=== PATIENT | female | born 1940 | race Caucasian/White ===

== ENCOUNTER 2017-11-18 20:40 | Inpatient (IN) | payer MEDICARE ==
[~2017-11-18] VITALS: Ht 160 cm; Wt 57.1 kg
[~2017-11-18 20:40] MED LIST: ACET325 PO; ACET500 PO; ALBU.083IS IH; ALBU3IS INH; ALBU3IS NEB; ALBU90OI; ALBU90OI INH; ALBU90OI6 INH; ALBU90OI61 INH; ALBUTEROL INH; ALPR.5; ASPI81CH; ASPI81CH PO; ASPI81EC PO; ATOR10; AZIT250 PO; AZIT500 PO; Acidophilus La100 GM PO; B Complex1 EAC2 PO; BENZ100A PO; BUDE6HFA; BUDE6HFA INH; BUME1; BUME1 PO; CALC1.25T; CALCAVITD PO; CAND32; CEFP200 PO; CEPACOL SORE T1 EACH MM; CEPH500 PO; CETI10 PO; CETYLOZ PO; CHOL10002 PO; CIME300 PO; CLON.1 PO; CLOP75 PO; CYAN1000 PO; DICL250 PO; DIGEST GOLD PO; DIGO.125 PO; DILT360ER; DIPH50; DIPH50 PO; DONE10 PO; DONE5 PO; FERR325 PO; FEXO180 PO; FISH1000 PO; FLUSAL5005; FLUSAL5005 IH; FLUT.05NI; FOLI400 PO; FURO40 PO; GUAI600T33 PO; Garlic1 EAC1; Garlic1 EAC1 PO; Garlic1000 MG PO; HYDCOR20 PO; HYDR10 PO; HYDRALAZINE; IMDUR; IRBE150; IRON PO; ISOMON30 PO; ISOMON60ER PO; Isosorbide Mono30 MG PO; LETR2.5 PO; LEVFLO500 PO; LINZESS145 MCG; LORA.5 PO; MAGCHL64ER PO; MAGN84 PO; MAGOXI400 PO; METPRE4DP PO; MOMENI; MONT10T; MULTCH; Micro-K10 MEQ PO; Mucinex600 MG PO; NASACORT10.8 ML; NASONEX; NEBI10 PO; NEBI5 PO; NIAC500 PO; NIAC500ER PO; NICO14TP TOP; NU-MAG71.5 MG PO; OMEP20ER PO; ONDA4ODT; OXYACE5T PO; PARO20 PO; POTA10T; POTA10T PO; PRED10 PO; PRED20; PRED20 PO; PRED5; PROACE100 PO; PROBIOTIC1 EAC1 PO; PROM25 PO; Prednisone20 MG PO; Prilosec Otc20 MG PO; Red Yeast Rice600 MG PO; SACC250C PO; SLOW-MAG PO; SUCR1 PO; TIOT18 INH; TORSE20 PO; UBID100 PO; VENL75; VERA240ER PO; VERA240ERB PO; VITAMIN B12 PO; Ventolin Soln3 ML; Ventolin Soln3 ML INH; XARELTO15 MG PO; ZOLP5 PO; Zithromax250 MG PO; [UNRECOGNIZED DRUG - OTHER] PO; [UNRECOGNIZED DRUG - OTHER] PO
[2017-11-18 20:57] LABS: BASOPHILS ABSOLUTE AUTO 0.05 K/mm3 (0.00-0.23); BASOPHILS PERCENT AUTO 1 % (0-2); EOSINOPHILS ABSOLUTE AUTO 0.21 K/mm3 (0.00-0.68); EOSINOPHILS PERCENT AUTO 2 % (0-6); Hematocrit 28.6 % (33.0-51.0); Hemoglobin 8.7 g/dL (11.5-16.0); IMMATURE GRAN ABSOLUTE AUTO 0.03 K/mm3 (0.00-0.10); IMMATURE GRAN PERCENT AUTO 0 % (0-1); LYMPHOCYTES ABSOLUTE AUTO 3.04 K/mm3 (0.84-5.20); LYMPHOCYTES PERCENT AUTO 30 % (21-46); MONOCYTES ABSOLUTE AUTO 1.19 K/mm3 (0.16-1.47); MONOCYTES PERCENT AUTO 12 % (4-13); Mean Corpuscular HGB 26.5 pg (26.0-34.0); Mean Corpuscular HGB Conc 30.4 g/dL (31.5-36.5); Mean Corpuscular Volume 87 fL (80-100); Mean Platelet Volume 8.8 fL (9.1-12.4); NEUTROPHILS ABSOLUTE AUTO 5.58 K/mm3 (1.96-9.15); NEUTROPHILS PERCENT AUTO 55 % (41-73); Platelet Count 565 K/mm3 (150-400); RDW Coefficient Variation 16.6 % (11.7-14.2); RDW Standard Deviation 53.4 fL (35.1-46.3); Red Blood Cell Count 3.28 M/mm3 (3.80-5.20)
[2017-11-18 21:12] LABS: Anion Gap 7 mmol/L (6-16); Blood Urea Nitrogen 41 mg/dL (8-24); CO2, Blood 26 mmol/L (21-32); Calcium, Blood 8.8 mg/dL (8.5-10.1); Chloride, Blood 104 mmol/L (98-108); Creatinine, Blood 1.71 mg/dL (0.40-1.00); Glomerular Filtration Rate 31 (60-); Glucose, Blood 92 mg/dL (70-99); Potassium, Blood 3.9 mmol/L (3.5-5.5); Sodium, Blood 137 mmol/L (136-145)
[2017-11-18 22:24] LABS: Troponin I <0.015 ng/mL (0.000-0.040)
[2017-11-19] MEDS ORDERED: CITA20 PO (04:14)
[2017-11-19 05:23] LABS: BASOPHILS ABSOLUTE AUTO 0.01 K/mm3 (0.00-0.23); BASOPHILS PERCENT AUTO 0 % (0-2); EOSINOPHILS PERCENT AUTO 0 % (0-6); Hematocrit 25.8 % (33.0-51.0); Hemoglobin 7.9 g/dL (11.5-16.0); IMMATURE GRAN ABSOLUTE AUTO 0.06 K/mm3 (0.00-0.10); IMMATURE GRAN PERCENT AUTO 1 % (0-1); LYMPHOCYTES ABSOLUTE AUTO 1.11 K/mm3 (0.84-5.20); LYMPHOCYTES PERCENT AUTO 11 % (21-46); MONOCYTES ABSOLUTE AUTO 0.08 K/mm3 (0.16-1.47); MONOCYTES PERCENT AUTO 1 % (4-13); Mean Corpuscular HGB 26.5 pg (26.0-34.0); Mean Corpuscular HGB Conc 30.6 g/dL (31.5-36.5); Mean Corpuscular Volume 87 fL (80-100); Mean Platelet Volume 8.7 fL (9.1-12.4); NEUTROPHILS ABSOLUTE AUTO 8.84 K/mm3 (1.96-9.15); NEUTROPHILS PERCENT AUTO 88 % (41-73); Platelet Count 527 K/mm3 (150-400); RDW Coefficient Variation 16.4 % (11.7-14.2); RDW Standard Deviation 51.8 fL (35.1-46.3); Red Blood Cell Count 2.98 M/mm3 (3.80-5.20)
[2017-11-19 05:50] LABS: Albumin, Blood 2.7 g/dL (3.4-5.0); Anion Gap 10 mmol/L (6-16); Blood Urea Nitrogen 41 mg/dL (8-24); Bun/Creatinine Ratio 23.6 (12.0-20.0); CO2, Blood 22 mmol/L (21-32); Calcium, Blood 8.4 mg/dL (8.5-10.1); Chloride, Blood 105 mmol/L (98-108); Creatinine, Blood 1.74 mg/dL (0.40-1.00); Glomerular Filtration Rate 30 (60-); Glucose, Blood 170 mg/dL (70-99); Potassium, Blood 3.9 mmol/L (3.5-5.5); Sodium, Blood 137 mmol/L (136-145)
[2017-11-21 05:30] LABS: Hematocrit 22.7 % (33.0-51.0); Hemoglobin 6.9 g/dL (11.5-16.0)
[2017-11-21 05:49] LABS: Bun/Creatinine Ratio 25.2 (12.0-20.0); Calcium, Blood 8.1 mg/dL (8.5-10.1); Creatinine, Blood 1.23 mg/dL (0.40-1.00); Potassium, Blood 3.4 mmol/L (3.5-5.5)
[2017-11-22 07:40] LABS: Hematocrit 26.8 % (33.0-51.0); Hemoglobin 8.4 g/dL (11.5-16.0); Mean Corpuscular HGB 26.8 pg (26.0-34.0); Mean Corpuscular HGB Conc 31.3 g/dL (31.5-36.5); Mean Corpuscular Volume 85 fL (80-100); Mean Platelet Volume 8.3 fL (9.1-12.4); Platelet Count 496 K/mm3 (150-400); RDW Coefficient Variation 17.2 % (11.7-14.2); RDW Standard Deviation 53.4 fL (35.1-46.3); Red Blood Cell Count 3.14 M/mm3 (3.80-5.20); White Blood Cell Count 9.79 K/mm3 (4.00-11.30)
[2017-11-22] MEDS ORDERED: PANT40 PO (08:29)
== END 2017-11-22 09:52 | disposition home or self-care (01) | DRG 377 ==
LOC: ER 20:40 → MEDS 23:32 → ENPENDDIS 11-22 08:09 → MEDS 11-22 09:52
PROVIDERS: Emergency Medicine; Family Medicine; Internal Medicine; Internal Medicine Gastroenterology
PROC: 3E0234Z Introduction of Serum, Toxoid and Vaccine into Muscle, Percutaneous Approach (ICD-10-PCS; 2017-11-19)
PROC: 0DJ08ZZ Inspection of Upper Intestinal Tract, Via Natural or Artificial Opening Endoscopic (ICD-10-PCS; principal; 2017-11-19 16:00)
PROC: 30233N1 Transfusion of Nonautologous Red Blood Cells into Peripheral Vein, Percutaneous Approach (ICD-10-PCS; 2017-11-21)
DX: K25.4 Chronic or unspecified gastric ulcer with hemorrhage (principal); J96.21 Acute and chronic respiratory failure with hypoxia; E11.22 Type 2 diabetes mellitus with diabetic chronic kidney disease; N18.4 Chronic kidney disease, stage 4 (severe); J44.1 Chronic obstructive pulmonary disease with (acute) exacerbation; I13.0 Hypertensive heart and chronic kidney disease with heart failure and stage 1 through stage 4 chronic kidney disease, or unspecified chronic kidney disease; K26.4 Chronic or unspecified duodenal ulcer with hemorrhage; K29.81 Duodenitis with bleeding; E11.51 Type 2 diabetes mellitus with diabetic peripheral angiopathy without gangrene; F03.90 Unspecified dementia, unspecified severity, without behavioral disturbance, psychotic disturbance, mood disturbance, and anxiety; Z23 Encounter for immunization; I25.10 Atherosclerotic heart disease of native coronary artery without angina pectoris; K44.9 Diaphragmatic hernia without obstruction or gangrene; F17.210 Nicotine dependence, cigarettes, uncomplicated; D63.1 Anemia in chronic kidney disease; D47.3 Essential (hemorrhagic) thrombocythemia; K21.9 Gastro-esophageal reflux disease without esophagitis; I50.9 Heart failure, unspecified
CPT/HCPCS: 36415; 36430; 71046; 80048; 80069; 82947; 84484; 85014; 85018; 85025; 85027; 86850; 86900; 86901; 86923; 93005; 93010; 94640; 94760; 96374; 97161; 97530; 99285; C9113; G8978; G8979; G8980; J7030; J7120; P9016

== ENCOUNTER 2017-11-24 19:22 | Emergency (ER) | payer MEDICARE ==
[~2017-11-24] VITALS: Ht 160 cm; Wt 63.5 kg
[~2017-11-24 19:22] MED LIST changes: +CITA20 PO; +PANT40 PO
[2017-11-24] MEDS ORDERED: BENZ100A PO (22:50)
[2017-11-24] MEDS ORDERED: Prednisone50 MG PO (22:50)
== END 2017-11-24 23:20 | disposition home or self-care (01) ==
LOC: ER 19:22
DX: J44.9 Chronic obstructive pulmonary disease, unspecified (principal); I13.0 Hypertensive heart and chronic kidney disease with heart failure and stage 1 through stage 4 chronic kidney disease, or unspecified chronic kidney disease; E11.22 Type 2 diabetes mellitus with diabetic chronic kidney disease; N18.9 Chronic kidney disease, unspecified; D63.1 Anemia in chronic kidney disease; I50.9 Heart failure, unspecified; I48.91 Unspecified atrial fibrillation; I25.10 Atherosclerotic heart disease of native coronary artery without angina pectoris; K21.9 Gastro-esophageal reflux disease without esophagitis; F17.210 Nicotine dependence, cigarettes, uncomplicated; Z88.8 Allergy status to other drugs, medicaments and biological substances; Z88.6 Allergy status to analgesic agent; Z88.2 Allergy status to sulfonamides; Z88.5 Allergy status to narcotic agent; Z88.1 Allergy status to other antibiotic agents; Z91.018 Allergy to other foods; Z79.899 Other long term (current) drug therapy; Z79.02 Long term (current) use of antithrombotics/antiplatelets
CPT/HCPCS: 71046; 94640; 99283; J1100

== ENCOUNTER 2017-12-26 21:04 | Emergency (ER) | payer MEDICARE ==
[~2017-12-26] VITALS: Ht 160 cm; Wt 54.4 kg
[~2017-12-26 21:04] MED LIST changes: +Prednisone50 MG PO
== END 2017-12-26 22:21 | disposition home or self-care (01) ==
LOC: ER 21:04
DX: L76.21 Postprocedural hemorrhage of skin and subcutaneous tissue following a dermatologic procedure (principal); I13.0 Hypertensive heart and chronic kidney disease with heart failure and stage 1 through stage 4 chronic kidney disease, or unspecified chronic kidney disease; J44.9 Chronic obstructive pulmonary disease, unspecified; I50.9 Heart failure, unspecified; E11.22 Type 2 diabetes mellitus with diabetic chronic kidney disease; K21.9 Gastro-esophageal reflux disease without esophagitis; N18.9 Chronic kidney disease, unspecified; I48.91 Unspecified atrial fibrillation; F17.210 Nicotine dependence, cigarettes, uncomplicated; Z88.8 Allergy status to other drugs, medicaments and biological substances; Z88.6 Allergy status to analgesic agent; Z88.2 Allergy status to sulfonamides; Z88.5 Allergy status to narcotic agent; Z88.1 Allergy status to other antibiotic agents; Z91.018 Allergy to other foods
CPT/HCPCS: 99282

== ENCOUNTER 2018-04-10 11:56 | Inpatient (IN) | payer MEDICARE ==
[~2018-04-10] VITALS: Ht 154.9 cm; Wt 59.0 kg
[2018-04-10 14:01] LABS: BASOPHILS ABSOLUTE AUTO 0.05 K/mm3 (0.00-0.23); BASOPHILS PERCENT AUTO 1 % (0-2); EOSINOPHILS ABSOLUTE AUTO 0.27 K/mm3 (0.00-0.68); EOSINOPHILS PERCENT AUTO 3 % (0-6); Hematocrit 33.2 % (33.0-51.0); Hemoglobin 10.2 g/dL (11.5-16.0); IMMATURE GRAN ABSOLUTE AUTO 0.04 K/mm3 (0.00-0.10); IMMATURE GRAN PERCENT AUTO 0 % (0-1); LYMPHOCYTES ABSOLUTE AUTO 2.71 K/mm3 (0.84-5.20); LYMPHOCYTES PERCENT AUTO 28 % (21-46); MONOCYTES ABSOLUTE AUTO 0.95 K/mm3 (0.16-1.47); MONOCYTES PERCENT AUTO 10 % (4-13); Mean Corpuscular HGB 29.9 pg (26.0-34.0); Mean Corpuscular HGB Conc 30.7 g/dL (31.5-36.5); Mean Corpuscular Volume 97 fL (80-100); Mean Platelet Volume 8.8 fL (9.1-12.4); NEUTROPHILS ABSOLUTE AUTO 5.66 K/mm3 (1.96-9.15); NEUTROPHILS PERCENT AUTO 59 % (41-73); Platelet Count 332 K/mm3 (150-400); RDW Coefficient Variation 14.6 % (11.7-14.2); RDW Standard Deviation 52.1 fL (35.1-46.3); Red Blood Cell Count 3.41 M/mm3 (3.80-5.20); White Blood Cell Count 9.68 K/mm3 (4.00-11.30)
[2018-04-10 14:16] LABS: Albumin, Blood 3.2 g/dL (3.4-5.0); Bilirubin, Total 0.3 mg/dL (0.1-1.0); Bun/Creatinine Ratio 27.1 (12.0-20.0); Calcium, Blood 8.3 mg/dL (8.5-10.1); Creatinine, Blood 1.07 mg/dL (0.40-1.00); Globulin, Blood 3.2 g/dL (2.2-4.0); Potassium, Blood 4.6 mmol/L (3.5-5.5); Total Protein, Blood 6.4 g/dL (6.4-8.2)
[2018-04-10] MEDS ORDERED: [UNRECOGNIZED DRUG - CODE] PO (14:16)
[2018-04-10] MEDS ORDERED: [UNRECOGNIZED DRUG - CODE] PO (14:20)
[2018-04-10] MEDS ORDERED: [UNRECOGNIZED DRUG - CODE] PO (14:22)
[2018-04-11 04:29] LABS: BASOPHILS ABSOLUTE AUTO 0.03 K/mm3 (0.00-0.23); BASOPHILS PERCENT AUTO 0 % (0-2); EOSINOPHILS ABSOLUTE AUTO 0.01 K/mm3 (0.00-0.68); EOSINOPHILS PERCENT AUTO 0 % (0-6); Hematocrit 29.3 % (33.0-51.0); Hemoglobin 9.2 g/dL (11.5-16.0); IMMATURE GRAN ABSOLUTE AUTO 0.05 K/mm3 (0.00-0.10); IMMATURE GRAN PERCENT AUTO 1 % (0-1); LYMPHOCYTES ABSOLUTE AUTO 1.43 K/mm3 (0.84-5.20); LYMPHOCYTES PERCENT AUTO 13 % (21-46); MONOCYTES ABSOLUTE AUTO 1.02 K/mm3 (0.16-1.47); MONOCYTES PERCENT AUTO 9 % (4-13); Mean Corpuscular HGB 29.6 pg (26.0-34.0); Mean Corpuscular HGB Conc 31.4 g/dL (31.5-36.5); Mean Platelet Volume 8.7 fL (9.1-12.4); NEUTROPHILS ABSOLUTE AUTO 8.33 K/mm3 (1.96-9.15); NEUTROPHILS PERCENT AUTO 77 % (41-73); Platelet Count 307 K/mm3 (150-400); RDW Coefficient Variation 14.6 % (11.7-14.2); Red Blood Cell Count 3.11 M/mm3 (3.80-5.20); White Blood Cell Count 10.87 K/mm3 (4.00-11.30)
[2018-04-11 04:31] LABS: Mean Corpuscular Volume 94 fL (80-100)
[2018-04-11 04:49] LABS: Calcium, Blood 7.8 mg/dL (8.5-10.1); Creatinine, Blood 1.21 mg/dL (0.40-1.00); Potassium, Blood 4.2 mmol/L (3.5-5.5)
[2018-04-11 13:11] LABS: International Normalized Ratio 1.07
[2018-04-12 04:31] LABS: BASOPHILS ABSOLUTE AUTO 0.03 K/mm3 (0.00-0.23); BASOPHILS PERCENT AUTO 0 % (0-2); EOSINOPHILS ABSOLUTE AUTO 0.03 K/mm3 (0.00-0.68); EOSINOPHILS PERCENT AUTO 0 % (0-6); Hematocrit 26.9 % (33.0-51.0); Hemoglobin 8.4 g/dL (11.5-16.0); IMMATURE GRAN ABSOLUTE AUTO 0.03 K/mm3 (0.00-0.10); IMMATURE GRAN PERCENT AUTO 0 % (0-1); LYMPHOCYTES ABSOLUTE AUTO 0.88 K/mm3 (0.84-5.20); LYMPHOCYTES PERCENT AUTO 8 % (21-46); MONOCYTES ABSOLUTE AUTO 1.09 K/mm3 (0.16-1.47); MONOCYTES PERCENT AUTO 10 % (4-13); Mean Corpuscular HGB 30.2 pg (26.0-34.0); Mean Corpuscular HGB Conc 31.2 g/dL (31.5-36.5); Mean Platelet Volume 8.8 fL (9.1-12.4); NEUTROPHILS ABSOLUTE AUTO 8.72 K/mm3 (1.96-9.15); NEUTROPHILS PERCENT AUTO 81 % (41-73); Platelet Count 253 K/mm3 (150-400); RDW Coefficient Variation 14.8 % (11.7-14.2); RDW Standard Deviation 52.8 fL (35.1-46.3); Red Blood Cell Count 2.78 M/mm3 (3.80-5.20); White Blood Cell Count 10.78 K/mm3 (4.00-11.30)
[2018-04-12 04:32] LABS: Mean Corpuscular Volume 97 fL (80-100)
[2018-04-12 05:00] LABS: Bun/Creatinine Ratio 20.8 (12.0-20.0); Calcium, Blood 7.3 mg/dL (8.5-10.1); Creatinine, Blood 1.3 mg/dL (0.40-1.00); Potassium, Blood 4.1 mmol/L (3.5-5.5)
[2018-04-13 04:01] LABS: Hematocrit 23.5 % (33.0-51.0); Hemoglobin 7.5 g/dL (11.5-16.0); Mean Corpuscular HGB 29.9 pg (26.0-34.0); Mean Corpuscular HGB Conc 31.9 g/dL (31.5-36.5); Platelet Count 230 K/mm3 (150-400); RDW Coefficient Variation 14.7 % (11.7-14.2); RDW Standard Deviation 50.7 fL (35.1-46.3); Red Blood Cell Count 2.51 M/mm3 (3.80-5.20); White Blood Cell Count 9.64 K/mm3 (4.00-11.30)
[2018-04-13 04:08] LABS: Mean Corpuscular Volume 94 fL (80-100)
[2018-04-13 04:21] LABS: Bun/Creatinine Ratio 24.7 (12.0-20.0); Calcium, Blood 7.2 mg/dL (8.5-10.1); Creatinine, Blood 1.54 mg/dL (0.40-1.00); Potassium, Blood 3.7 mmol/L (3.5-5.5)
[2018-04-13 14:29] LABS: BASOPHILS ABSOLUTE AUTO 0.03 K/mm3 (0.00-0.23); BASOPHILS PERCENT AUTO 0 % (0-2); EOSINOPHILS ABSOLUTE AUTO 0.43 K/mm3 (0.00-0.68); EOSINOPHILS PERCENT AUTO 4 % (0-6); Hematocrit 28.5 % (33.0-51.0); Hemoglobin 9.3 g/dL (11.5-16.0); IMMATURE GRAN ABSOLUTE AUTO 0.05 K/mm3 (0.00-0.10); IMMATURE GRAN PERCENT AUTO 1 % (0-1); LYMPHOCYTES PERCENT AUTO 10 % (21-46); MONOCYTES ABSOLUTE AUTO 1.35 K/mm3 (0.16-1.47); MONOCYTES PERCENT AUTO 13 % (4-13); Mean Corpuscular HGB 30.2 pg (26.0-34.0); Mean Corpuscular HGB Conc 32.6 g/dL (31.5-36.5); Mean Corpuscular Volume 93 fL (80-100); Mean Platelet Volume 9.1 fL (9.1-12.4); NEUTROPHILS ABSOLUTE AUTO 7.78 K/mm3 (1.96-9.15); NEUTROPHILS PERCENT AUTO 72 % (41-73); Platelet Count 233 K/mm3 (150-400); RDW Coefficient Variation 15.6 % (11.7-14.2); RDW Standard Deviation 52.5 fL (35.1-46.3); Red Blood Cell Count 3.08 M/mm3 (3.80-5.20); White Blood Cell Count 10.74 K/mm3 (4.00-11.30)
[2018-04-14 08:39] LABS: Hematocrit 29.1 % (33.0-51.0); Hemoglobin 9.3 g/dL (11.5-16.0); Mean Corpuscular HGB 29.2 pg (26.0-34.0); Mean Corpuscular Volume 91 fL (80-100); Mean Platelet Volume 9.1 fL (9.1-12.4); Platelet Count 269 K/mm3 (150-400); RDW Coefficient Variation 15.7 % (11.7-14.2); RDW Standard Deviation 52.2 fL (35.1-46.3); Red Blood Cell Count 3.19 M/mm3 (3.80-5.20); White Blood Cell Count 9.12 K/mm3 (4.00-11.30)
== END 2018-04-14 14:05 | DRG 470 ==
LOC: ER 11:56 → SURS 14:04 → ER 14:49 → SURS 15:00
PROVIDERS: Family Medicine; Internal Medicine; Orthopaedic Surgery; Physician Assistant
PROC: 0SRR0JZ Replacement of Right Hip Joint, Femoral Surface with Synthetic Substitute, Open Approach (ICD-10-PCS; principal; 2018-04-11 12:30)
PROC: 30233N1 Transfusion of Nonautologous Red Blood Cells into Peripheral Vein, Percutaneous Approach (ICD-10-PCS; 2018-04-13)
DX: S72.001A Fracture of unspecified part of neck of right femur, initial encounter for closed fracture (principal); I13.0 Hypertensive heart and chronic kidney disease with heart failure and stage 1 through stage 4 chronic kidney disease, or unspecified chronic kidney disease; D62 Acute posthemorrhagic anemia; N18.3 Chronic kidney disease, stage 3 (moderate); K21.9 Gastro-esophageal reflux disease without esophagitis; J44.9 Chronic obstructive pulmonary disease, unspecified; I48.91 Unspecified atrial fibrillation; G30.9 Alzheimer's disease, unspecified; F02.80 Dementia in other diseases classified elsewhere, unspecified severity, without behavioral disturbance, psychotic disturbance, mood disturbance, and anxiety; Z85.3 Personal history of malignant neoplasm of breast; Z85.41 Personal history of malignant neoplasm of cervix uteri; Z90.10 Acquired absence of unspecified breast and nipple; F17.210 Nicotine dependence, cigarettes, uncomplicated; E11.22 Type 2 diabetes mellitus with diabetic chronic kidney disease; W18.30XA Fall on same level, unspecified, initial encounter; Y92.481 Parking lot as the place of occurrence of the external cause; Z79.01 Long term (current) use of anticoagulants; E86.0 Dehydration; D63.1 Anemia in chronic kidney disease; Z85.118 Personal history of other malignant neoplasm of bronchus and lung; Z86.73 Personal history of transient ischemic attack (TIA), and cerebral infarction without residual deficits; Z90.2 Acquired absence of lung [part of]
CPT/HCPCS: 36415; 36430; 51702; 71045; 72170; 73502; 80048; 80053; 82947; 85025; 85027; 85610; 86850; 86900; 86901; 86923; 93005; 93010; 94640; 94760; 97110; 97116; 97163; 97166; 97535; 99285-25; C1776; C9113; G8978; G8979; G8987; G8988; J0171; J0330; J0690; J0735; J1885; J2250; J2405; J2795; J3010; J7030; J7120; P9016

== ENCOUNTER 2018-05-08 22:20 | Emergency (ER) | payer MEDICARE ==
[~2018-05-08] VITALS: Ht 160 cm; Wt 63.5 kg
[~2018-05-08 22:20] MED LIST changes: +[UNRECOGNIZED DRUG - CODE] PO; +[UNRECOGNIZED DRUG - CODE] PO; +[UNRECOGNIZED DRUG - CODE] PO
[2018-05-08] MEDS ORDERED: FAMO20 PO (23:02)
[2018-05-08] MEDS ORDERED: OXYC5 PO (23:04)
[2018-05-08] MEDS ORDERED: Arthritis Pai42.5 GM TOP (23:14)
[2018-05-08] MEDS ORDERED: LIDO700A20 TOP (23:14)
== END 2018-05-09 | disposition home or self-care (01) ==
LOC: ER 22:20
DX: I95.9 Hypotension, unspecified (principal); M25.551 Pain in right hip; J44.9 Chronic obstructive pulmonary disease, unspecified; K21.9 Gastro-esophageal reflux disease without esophagitis; I13.0 Hypertensive heart and chronic kidney disease with heart failure and stage 1 through stage 4 chronic kidney disease, or unspecified chronic kidney disease; E11.22 Type 2 diabetes mellitus with diabetic chronic kidney disease; N18.3 Chronic kidney disease, stage 3 (moderate); I50.9 Heart failure, unspecified; I48.91 Unspecified atrial fibrillation; F17.210 Nicotine dependence, cigarettes, uncomplicated; Z86.73 Personal history of transient ischemic attack (TIA), and cerebral infarction without residual deficits; Z88.8 Allergy status to other drugs, medicaments and biological substances; Z88.6 Allergy status to analgesic agent; Z88.2 Allergy status to sulfonamides; Z88.5 Allergy status to narcotic agent; Z79.899 Other long term (current) drug therapy; Z91.018 Allergy to other foods; Z79.52 Long term (current) use of systemic steroids
CPT/HCPCS: 99284

== ENCOUNTER → 2018-10-23 | Outpatient (CLI) | payer MEDICARE ==
[~2018-10-23] MED LIST changes: +Arthritis Pai42.5 GM TOP; +FAMO20 PO; +LIDO700A20 TOP; +OXYC5 PO
[2018-10-23 17:19] LABS: Percent Saturation 28.1 % (15.0-50.0)
== END ==
LOC: LAB 16:44 → LAB SHORT 16:44
PROVIDERS: Internal Medicine Hematology & Oncology
DX: D50.0 Iron deficiency anemia secondary to blood loss (chronic) (principal); D51.8 Other vitamin B12 deficiency anemias
CPT/HCPCS: 82607; 82746; 83540; 83550

== ENCOUNTER 2019-01-01 11:38 | Emergency (ER) | payer MEDICARE ==
[~2019-01-01] VITALS: Ht 162.6 cm; Wt 77.1 kg
[2019-01-01] MEDS ORDERED: SUCR1 PO (12:09)
[2019-01-01] MEDS ORDERED: TORSE20 (12:11)
[2019-01-01] MEDS ORDERED: SODBIC650 PO (12:12)
[2019-01-01] MEDS ORDERED: CLOP75 PO (12:12)
[2019-01-01] MEDS ORDERED: AMLO5 PO (12:13)
[2019-01-01 13:49] LABS: BASOPHILS ABSOLUTE AUTO 0.06 K/mm3 (0.00-0.23); BASOPHILS PERCENT AUTO 1 % (0-2); EOSINOPHILS ABSOLUTE AUTO 0.42 K/mm3 (0.00-0.68); EOSINOPHILS PERCENT AUTO 4 % (0-6); Hematocrit 39.1 % (33.0-51.0); Hemoglobin 11.5 g/dL (11.5-16.0); IMMATURE GRAN ABSOLUTE AUTO 0.02 K/mm3 (0.00-0.10); IMMATURE GRAN PERCENT AUTO 0 % (0-1); LYMPHOCYTES ABSOLUTE AUTO 2.15 K/mm3 (0.84-5.20); LYMPHOCYTES PERCENT AUTO 22 % (21-46); MONOCYTES PERCENT AUTO 12 % (4-13); Mean Corpuscular HGB 27.5 pg (26.0-34.0); Mean Corpuscular HGB Conc 29.4 g/dL (31.5-36.5); Mean Corpuscular Volume 94 fL (80-100); Mean Platelet Volume 9.2 fL (9.1-12.4); NEUTROPHILS ABSOLUTE AUTO 6.16 K/mm3 (1.96-9.15); NEUTROPHILS PERCENT AUTO 62 % (41-73); Platelet Count 470 K/mm3 (150-400); RDW Coefficient Variation 14.3 % (11.7-14.2); RDW Standard Deviation 48.7 fL (35.1-46.3); Red Blood Cell Count 4.18 M/mm3 (3.80-5.20); White Blood Cell Count 10.01 K/mm3 (4.00-11.30)
[2019-01-01 14:00] LABS: Albumin, Blood 3.3 g/dL (3.4-5.0); Albumin/Globulin Ratio 0.9 (0.8-1.8); Bilirubin, Total 0.4 mg/dL (0.1-1.0); Bun/Creatinine Ratio 28.2 (12.0-20.0); Calcium, Blood 8.6 mg/dL (8.5-10.1); Creatinine, Blood 1.03 mg/dL (0.40-1.00); Globulin, Blood 3.7 g/dL (2.2-4.0); Potassium, Blood 4.1 mmol/L (3.5-5.5)
== END 2019-01-01 15:50 | disposition home or self-care (01) ==
LOC: ER 11:38
PROVIDERS: Internal Medicine
DX: I10 Essential (primary) hypertension (principal); Z88.6 Allergy status to analgesic agent; Z88.8 Allergy status to other drugs, medicaments and biological substances; Z88.2 Allergy status to sulfonamides; Z88.5 Allergy status to narcotic agent; Z88.1 Allergy status to other antibiotic agents; Z79.899 Other long term (current) drug therapy; Z79.84 Long term (current) use of oral hypoglycemic drugs; J45.909 Unspecified asthma, uncomplicated; J44.9 Chronic obstructive pulmonary disease, unspecified; K21.9 Gastro-esophageal reflux disease without esophagitis; I13.0 Hypertensive heart and chronic kidney disease with heart failure and stage 1 through stage 4 chronic kidney disease, or unspecified chronic kidney disease; E11.22 Type 2 diabetes mellitus with diabetic chronic kidney disease; I50.9 Heart failure, unspecified; N18.3 Chronic kidney disease, stage 3 (moderate); I48.91 Unspecified atrial fibrillation; F17.210 Nicotine dependence, cigarettes, uncomplicated
CPT/HCPCS: 70450; 80053; 85025; 93005; 93010; 96374; 99284-25; J0360

== ENCOUNTER → 2019-01-25 | Outpatient (CLI) | payer MEDICARE ==
[~2019-01-25] MED LIST changes: +AMLO5 PO; +SODBIC650 PO; +TORSE20
[2019-01-25 13:57] LABS: Stool Occult Bld Immuno 1 Negative (NEGATIVE)
== END | disposition home or self-care (01) ==
LOC: LAB 09:05 → LAB SHORT 09:05
PROVIDERS: Internal Medicine Nephrology
DX: N18.3 Chronic kidney disease, stage 3 (moderate) (principal); D63.1 Anemia in chronic kidney disease; D75.1 Secondary polycythemia
CPT/HCPCS: 82274

== ENCOUNTER 2019-05-02 14:34 | Emergency (ER) | payer MEDICARE ==
[~2019-05-02] VITALS: Ht 162.6 cm; Wt 63.5 kg
[2019-05-02 15:12] LABS: BASOPHILS ABSOLUTE AUTO 0.06 K/mm3 (0.00-0.23); BASOPHILS PERCENT AUTO 1 % (0-2); EOSINOPHILS ABSOLUTE AUTO 0.41 K/mm3 (0.00-0.68); EOSINOPHILS PERCENT AUTO 6 % (0-6); Hematocrit 37.4 % (33.0-51.0); Hemoglobin 10.8 g/dL (11.5-16.0); IMMATURE GRAN ABSOLUTE AUTO 0.05 K/mm3 (0.00-0.10); IMMATURE GRAN PERCENT AUTO 1 % (0-1); LYMPHOCYTES ABSOLUTE AUTO 1.54 K/mm3 (0.84-5.20); LYMPHOCYTES PERCENT AUTO 21 % (21-46); MONOCYTES ABSOLUTE AUTO 1.04 K/mm3 (0.16-1.47); MONOCYTES PERCENT AUTO 15 % (4-13); Mean Corpuscular HGB 25.1 pg (26.0-34.0); Mean Corpuscular HGB Conc 28.9 g/dL (31.5-36.5); Mean Corpuscular Volume 87 fL (80-100); Mean Platelet Volume 8.7 fL (9.1-12.4); NEUTROPHILS ABSOLUTE AUTO 4.08 K/mm3 (1.96-9.15); NEUTROPHILS PERCENT AUTO 57 % (41-73); Platelet Count 592 K/mm3 (150-400); RDW Coefficient Variation 17.7 % (11.7-14.2); RDW Standard Deviation 56.7 fL (35.1-46.3); White Blood Cell Count 7.18 K/mm3 (4.00-11.30)
[2019-05-02 15:40] LABS: Alanine Aminotransfer (ALT/SGP 17 U/L (12-78); Albumin, Blood 2.6 g/dL (3.4-5.0); Albumin/Globulin Ratio 0.6 (0.8-1.8); Alk Phos 92 U/L (50-136); Anion Gap 6 mmol/L (6-16); Aspartate Aminotrans (AST/SGOT 23 U/L (12-37); Bilirubin, Total 0.2 mg/dL (0.1-1.0); Blood Urea Nitrogen 23 mg/dL (8-24); Bun/Creatinine Ratio 16.2 (12.0-20.0); CO2, Blood 30 mmol/L (21-32); Calcium, Blood 8.6 mg/dL (8.5-10.1); Chloride, Blood 103 mmol/L (98-108); Creatinine, Blood 1.42 mg/dL (0.40-1.00); Globulin, Blood 4.6 g/dL (2.2-4.0); Glomerular Filtration Rate 38 (60-); Glucose, Blood 82 mg/dL (70-99); Potassium, Blood 3.4 mmol/L (3.5-5.5); Sodium, Blood 139 mmol/L (136-145); Total Protein, Blood 7.2 g/dL (6.4-8.2); Troponin I <0.015 ng/mL (0.000-0.040)
[2019-05-02] MEDS ORDERED: Pepcid20 MG PO (18:33)
== END 2019-05-02 19:08 | disposition home or self-care (01) ==
LOC: ER 14:34
PROVIDERS: Physician Assistant
DX: R10.13 Epigastric pain (principal); R07.81 Pleurodynia; F03.90 Unspecified dementia, unspecified severity, without behavioral disturbance, psychotic disturbance, mood disturbance, and anxiety; I25.2 Old myocardial infarction; Z88.6 Allergy status to analgesic agent; Z88.2 Allergy status to sulfonamides; Z88.8 Allergy status to other drugs, medicaments and biological substances; Z91.018 Allergy to other foods; Z79.899 Other long term (current) drug therapy; J44.9 Chronic obstructive pulmonary disease, unspecified; I11.0 Hypertensive heart disease with heart failure; I50.9 Heart failure, unspecified; E11.9 Type 2 diabetes mellitus without complications; K21.9 Gastro-esophageal reflux disease without esophagitis; I48.91 Unspecified atrial fibrillation; Z87.891 Personal history of nicotine dependence
CPT/HCPCS: 36415; 71046; 80053; 83690; 84484; 85025; 93005; 93010; 99285-25

== ENCOUNTER 2019-06-06 15:04 | Inpatient (IN) | payer MEDICARE ==
[~2019-06-06] VITALS: Ht 160 cm; Wt 62.2 kg
[~2019-06-06 15:04] MED LIST changes: +Pepcid20 MG PO
[2019-06-06 16:34] LABS: BASOPHILS ABSOLUTE AUTO 0.03 K/mm3 (0.00-0.23); BASOPHILS PERCENT AUTO 0 % (0-2); EOSINOPHILS PERCENT AUTO 2 % (0-6); Hematocrit 31.3 % (33.0-51.0); Hemoglobin 9.5 g/dL (11.5-16.0); IMMATURE GRAN ABSOLUTE AUTO 0.05 K/mm3 (0.00-0.10); IMMATURE GRAN PERCENT AUTO 0 % (0-1); LYMPHOCYTES ABSOLUTE AUTO 1.24 K/mm3 (0.84-5.20); LYMPHOCYTES PERCENT AUTO 10 % (21-46); MONOCYTES ABSOLUTE AUTO 1.17 K/mm3 (0.16-1.47); MONOCYTES PERCENT AUTO 9 % (4-13); Mean Corpuscular HGB 27.1 pg (26.0-34.0); Mean Corpuscular HGB Conc 30.4 g/dL (31.5-36.5); Mean Platelet Volume 8.8 fL (9.1-12.4); NEUTROPHILS ABSOLUTE AUTO 9.91 K/mm3 (1.96-9.15); NEUTROPHILS PERCENT AUTO 79 % (41-73); Platelet Count 434 K/mm3 (150-400); RDW Coefficient Variation 18.6 % (11.7-14.2); RDW Standard Deviation 60.1 fL (35.1-46.3)
[2019-06-06 16:35] LABS: Mean Corpuscular Volume 89 fL (80-100)
[2019-06-06] MEDS ORDERED: ALBU90OI INH (17:12)
[2019-06-06] MEDS ORDERED: Ferus150 MG PO (17:15)
[2019-06-06] MEDS ORDERED: ALLO100 PO (17:16)
[2019-06-06] MEDS ORDERED: CARB200 PO (17:17)
[2019-06-06 17:43] LABS: Source, Urine Clean Catch
[2019-06-06 17:51] LABS: Albumin, Blood 2.7 g/dL (3.4-5.0); Albumin/Globulin Ratio 0.7 (0.8-1.8); Bilirubin, Total 0.2 mg/dL (0.1-1.0); Bun/Creatinine Ratio 26.3 (12.0-20.0); Calcium, Blood 8.6 mg/dL (8.5-10.1); Creatinine, Blood 1.67 mg/dL (0.40-1.00); Globulin, Blood 3.8 g/dL (2.2-4.0); Potassium, Blood 3.7 mmol/L (3.5-5.5); Total Protein, Blood 6.5 g/dL (6.4-8.2); Troponin I 0.025 ng/mL (0.000-0.040)
[2019-06-06 17:54] LABS: Bilirubin, Urine Neg (Neg); Blood, Urine 1+ (Neg); Glucose Qualitative, Urine Neg (Neg); Ketones, Urine Neg (Neg); Leukocyte Esterase, Urine 1+ (Neg); Nitrite, Urine Neg (Neg); Protein, Urine 3+ (Neg); Urobilinogen, Urine NORM (Normal)
[2019-06-06 18:03] LABS: Appearance, Urine Clear (Clear); Color, Urine Yellow (P-Yellow)
[2019-06-06 18:04] LABS: Bacteria Few /hpf; Hyaline Casts 0-2 /lpf (0-2); Red Blood Cells, Urine 0-2 /hpf (0-2); Squamous Epithelial Cells Few /hpf (Few); White Blood Cells, Urine 0-2 /hpf (0-5)
--- NOTE | 2019-06-06 20:45 | NUR ---
PT TO PCU 14 FROM ED. PT ALERT AND ORIENTED, ABLE TO TRANSFER TO PCU BED WITH MINIMAL ASSISTANCE. PT DENIES DIZZINESS OR PAIN AT THIS TIME. PT'S VSS ON ARRIVAL FROM ED. BED IN LOW LOCKED WITH BED ALARM ON. PT'S DAUGHTER AND SON-IN-LAW AT BEDSIDE, UPDATED ON CONDITION AND PLAN OF CARE. SEE ADMISSION ASSESSMENT/HISTORY.
--- NOTE | 2019-06-07 01:21 | NUR ---
PT UP TO BATHROOM INCONTINENT OF STOOL, COPIOUS AMOUNTS OF WATERY BLACK FOUL SMELLING STOOL ON FLOOR AND IN TOILET. STOOL SAMPLE SENT TO LAB.
[2019-06-07 01:43] LABS: Stool Occult Blood Guaiac 1 Pos (Neg)
[2019-06-07 02:21] LABS: Hematocrit 27.1 % (33.0-51.0); Hemoglobin 8.3 g/dL (11.5-16.0); Mean Corpuscular HGB 26.9 pg (26.0-34.0); Mean Corpuscular HGB Conc 30.6 g/dL (31.5-36.5); Mean Corpuscular Volume 88 fL (80-100); Mean Platelet Volume 8.9 fL (9.1-12.4); NRBC ABSOLUTE 0.02 K/mm3 (0.00-0.02); NRBC Auto 0.2 /100 WBC (0.0-0.2); Platelet Count 397 K/mm3 (150-400); RDW Coefficient Variation 18.6 % (11.7-14.2); RDW Standard Deviation 59.8 fL (35.1-46.3); Red Blood Cell Count 3.08 M/mm3 (3.80-5.20); White Blood Cell Count 13.18 K/mm3 (4.00-11.30)
[2019-06-07 02:32] LABS: Albumin, Blood 2.7 g/dL (3.4-5.0); Anion Gap 8 mmol/L (6-16); Blood Urea Nitrogen 51 mg/dL (8-24); Bun/Creatinine Ratio 31.3 (12.0-20.0); CO2, Blood 26 mmol/L (21-32); Calcium, Blood 8.7 mg/dL (8.5-10.1); Chloride, Blood 101 mmol/L (98-108); Creatinine, Blood 1.63 mg/dL (0.40-1.00); Glomerular Filtration Rate 32 (60-); Glucose, Blood 89 mg/dL (70-99); Magnesium, Blood 2.4 mg/dL (1.6-2.4); Phosphorus, Blood 3.9 mg/dL (2.5-4.9); Sodium, Blood 135 mmol/L (136-145)
--- NOTE | 2019-06-07 06:00 | NUR ---
CALL TO HOSP REGARDING PT'S BLEED AND DROP IN H/H. DR. SIERRA TO REVIEW CHART AND PLACE GI CONSULT NEEDED. PT'S DAUGHTER UPDATE VIA TELEPHONE REGARDING PT'S CONDITION AND PLAN OF CARE. PER PT'S DAUGHTER, PT SEE'S DR. JUAREZ REGULARLY AND HAS HX OF GI BLEED.
--- NOTE | 2019-06-07 06:43 | NUR ---
SHIFT SUMMARY PT REMAINS ALERT AND ORIENTED WITH PERIODS OF FORGETFULNESS D/T HX DEMENTIA. ALL VSS T/O SHIFT. NO C/O PAIN OR ABDOMINAL TENDERNESS. SEE PREVIOUS NOTES FROM THIS SHIFT, WILL REPORT TO DAYSHIFT NURSE.
[2019-06-07 14:32] LABS: Hematocrit 26.5 % (33.0-51.0)
--- NOTE | 2019-06-07 17:39 | NUR ---
SHIFT SUMMARY PT ALERT AND ORIENTED, BUT FORGETFUL AT TIMES. VS STABLE. O2 SATS REMAIN ABOVE 90% ON RA. BP STABLE. PLAN FOR PT TO HAVE EGD IN THE AM. PT TO BE NPO AT MIDNIGHT. SPOKE WITH DR. JOY ABOUT HGB OF 8.0. NO ORDERS FOR BLOOD PRODUCTS AT THIS TIME. PROTONIX GTT INFUSING PER ORDERS. WILL CONTIUE TO MONITOR AND REPORT TO ONCOMING RN. CALL LIGHT IN REACH.
[2019-06-08 04:24] LABS: Hematocrit 23.4 % (33.0-51.0); Hemoglobin 7.3 g/dL (11.5-16.0); Mean Corpuscular HGB 26.4 pg (26.0-34.0); Mean Corpuscular HGB Conc 31.2 g/dL (31.5-36.5); Mean Platelet Volume 8.9 fL (9.1-12.4); Platelet Count 324 K/mm3 (150-400); RDW Standard Deviation 58.2 fL (35.1-46.3); Red Blood Cell Count 2.77 M/mm3 (3.80-5.20); White Blood Cell Count 9.75 K/mm3 (4.00-11.30)
[2019-06-08 04:25] LABS: Mean Corpuscular Volume 85 fL (80-100)
[2019-06-08 04:39] LABS: Anion Gap 6 mmol/L (6-16); Blood Urea Nitrogen 53 mg/dL (8-24); Bun/Creatinine Ratio 27.7 (12.0-20.0); CO2, Blood 27 mmol/L (21-32); Calcium, Blood 7.9 mg/dL (8.5-10.1); Carbamazepine 14.2 ug/mL (4.0-12.0); Chloride, Blood 103 mmol/L (98-108); Creatinine, Blood 1.91 mg/dL (0.40-1.00); Glomerular Filtration Rate 27 (60-); Glucose, Blood 87 mg/dL (70-99); Potassium, Blood 3.8 mmol/L (3.5-5.5); Sodium, Blood 136 mmol/L (136-145)
--- NOTE | 2019-06-08 05:23 | NUR ---
END OF SHIFT SUMMARY PT HAS BEEN ALERT AND SPEAKING WITH STAFF APPROPRIATELY. PT HAS BEEN FORGETFUL AT TIMES. HR CONTINUES TO BE SINBRADY 40'S TO 50'S. BP CONTINUES TO HAVE SLIGHTLY LOW BP'S COMPARED TO FAMILY STATEMENTS OF BASELINE BP OF 140 SYSTOLICALLY. PT'S DAUGHTER VERY INVESTED IN CARE AND HAS VOICED CONCERN OF BP SYSTOLIC 120'S. PT'S HGB DROPPED TO 7.3, IUPRBCS'S ORDERED. OTHERWISE, NO ACUTE CHANGES THIS SHIFT. CALL LIGHT WITHIN REACH. BED IN LOWEST POSITION. BED ALARM IN PLACE. WILL CONTINUE TO MONITOR PT UNTIL SHIFT CHANGE.
--- NOTE | 2019-06-08 10:12 | NUR ---
History, Chart, Medications and Allergies reviewed before start of procedure. Patient confirms NPO status and agrees with scheduled surgery. Pre-Op teaching done. Pt verbalizes understanding. LS WITH INSP AND EXP WHEEZES. PT GIVEN LIDOCAINE 4% NEB TREATMENT PER DR. THOMAS ORDERS.
--- NOTE | 2019-06-08 10:19 | NUR ---
06/08/19 1019 Kalpesh Nguyen Bite Block Placed3-LEAD EKG REVIEWED WITH PHYSICIAN PRIOR TO START OF PROCEDURE.Patient to ENDO 1History, Chart, Medications and Allergies reviewed before start of procedure.MONITOR INTACT WITH CONTINUOUS PULSE OXIMETRY AND INTERMITTENT BP.Patient confirms NPO status and agrees with scheduled surgery.O2 VIA N/C INTACT THROUGHOUT SEDATION/PROCEDURE.See Anesthesia record.
--- NOTE | 2019-06-08 10:54 | NUR ---
BLOOD CONPLETED AT ABOUT 1000, PT TO DAY SURGERY FOR EGD AT ABOUT 1005
--- NOTE | 2019-06-08 11:08 | NUR ---
PT BACK FROM EGD AT THIS TIME, VSS, RESTING
--- NOTE | 2019-06-08 14:51 | NUR ---
REPORT GIVEN TO YANCY BRAVO.
--- NOTE | 2019-06-08 18:39 | NUR ---
SHIFT SUMMARY: PT RETURNED FROM [facility] AND WAS ASKING FOR FLUIDS. DR URIBE WAS CALLED AND RECEIVED ORDER TO RESTART CLEAR LIQUIDS, NO FURTHER PLAN AT THIS TIME. FAMILY AND PATIENT UPDATED ON DIET ORDER. PT UP TO BSC WITH 1 PERSON ASSIST, TOLLERATED WELL. OUTPUT WAS 350ML. HEART RATE BEGAN TO TREND DOWN AND WAS NOTED TO BE LOW MID 30'S. PT DENEIS ANY LIGHT HEADEDNESS, OR DIZZYNESS. WILL CONTINUE TO MONITOR AND REPORT TO ONCOMING RN. CALL LIGHT IN REACH. BED IN LOWEST POSSITION.
--- NOTE | 2019-06-08 19:25 | NUR ---
ASSUMED CARE OF PT, BEDSIDE REPORT RECEIVED. PT IS RESTING QUIETLY RECLINING IN BED AND VISITING WITH DAUGHTER AT BEDSIDE. PT REQUESTS LEMON OR [place] JELLO, PROVIDED. WILL MONITOR.
[2019-06-09 03:49] LABS: Hemoglobin 8.3 g/dL (11.5-16.0); Mean Corpuscular HGB 27.9 pg (26.0-34.0); Mean Corpuscular HGB Conc 31.9 g/dL (31.5-36.5); Mean Corpuscular Volume 87 fL (80-100); Mean Platelet Volume 8.6 fL (9.1-12.4); Platelet Count 323 K/mm3 (150-400); RDW Standard Deviation 57.7 fL (35.1-46.3); Red Blood Cell Count 2.98 M/mm3 (3.80-5.20); White Blood Cell Count 8.38 K/mm3 (4.00-11.30)
[2019-06-09 04:07] LABS: Bun/Creatinine Ratio 26.8 (12.0-20.0); Calcium, Blood 8.1 mg/dL (8.5-10.1); Creatinine, Blood 1.42 mg/dL (0.40-1.00); Potassium, Blood 3.7 mmol/L (3.5-5.5)
--- NOTE | 2019-06-09 06:25 | NUR ---
PT RESTS QUIETLY THROUGHOUT SHIFT, DENIES N/V, DENIES PAIN, DENIES CP/PRESSURE, DENIES SOB/DYSPNEA. STATES THAT SHE IS HOPEFUL TO BE DISCHARGED TO HOME TODAY. DAUGHTER PLANS TO RETURN AT 0700. ASSESSMENT HAS REMAINED UNCHANGED THROUGHOUT SHIFT. PT TURNS SELF WELL.
[2019-06-09 10:50] LABS: Percent Saturation 19.5 % (15.0-50.0)
[2019-06-10 05:33] LABS: BASOPHILS ABSOLUTE AUTO 0.03 K/mm3 (0.00-0.23); BASOPHILS PERCENT AUTO 0 % (0-2); EOSINOPHILS ABSOLUTE AUTO 0.56 K/mm3 (0.00-0.68); EOSINOPHILS PERCENT AUTO 8 % (0-6); Hematocrit 27.2 % (33.0-51.0); Hemoglobin 8.6 g/dL (11.5-16.0); IMMATURE GRAN ABSOLUTE AUTO 0.04 K/mm3 (0.00-0.10); IMMATURE GRAN PERCENT AUTO 1 % (0-1); LYMPHOCYTES ABSOLUTE AUTO 1.67 K/mm3 (0.84-5.20); LYMPHOCYTES PERCENT AUTO 23 % (21-46); MONOCYTES ABSOLUTE AUTO 0.78 K/mm3 (0.16-1.47); MONOCYTES PERCENT AUTO 11 % (4-13); Mean Corpuscular HGB 27.7 pg (26.0-34.0); Mean Corpuscular HGB Conc 31.6 g/dL (31.5-36.5); Mean Corpuscular Volume 88 fL (80-100); Mean Platelet Volume 9.1 fL (9.1-12.4); NEUTROPHILS ABSOLUTE AUTO 4.23 K/mm3 (1.96-9.15); NEUTROPHILS PERCENT AUTO 58 % (41-73); Platelet Count 329 K/mm3 (150-400); RDW Standard Deviation 57.5 fL (35.1-46.3); Red Blood Cell Count 3.11 M/mm3 (3.80-5.20); White Blood Cell Count 7.31 K/mm3 (4.00-11.30)
--- NOTE | 2019-06-10 06:42 | NUR ---
SHIFT SUMMARY. DENIES ANY DISCOMFORT ALL NOC . USES WALKER TO BRP/ W/ ASSIST. LOOSE COUGH OCC ALL NOC. REPORTS ALLERGIES. MENTATION SEEMS CLEAR WHEN AROUSED AND REVIEWED. NO GI DISTRESS. MED NO TELE. DAUGHTER REQUESTS PT AND EVAL FOR STRENGTHENING BEFORE GOING HOME
[2019-06-10] MEDS ORDERED: AMLO10 PO (10:57)
[2019-07-26] MEDS ORDERED: POTCHL20ER PO (20:51)
[2019-07-26] MEDS ORDERED: POTCHL20ER (22:15)
== END 2019-06-10 15:15 | disposition home or self-care (01) | DRG 378 ==
LOC: ER 15:04 → PCU 18:57
PROVIDERS: Emergency Medicine; Internal Medicine; Internal Medicine Gastroenterology; Physician Assistant; ADMIT Internal Medicine
PROC: 0DJ08ZZ Inspection of Upper Intestinal Tract, Via Natural or Artificial Opening Endoscopic (ICD-10-PCS; principal; 2019-06-08 07:00)
DX: K25.0 Acute gastric ulcer with hemorrhage (principal); D62 Acute posthemorrhagic anemia; J44.9 Chronic obstructive pulmonary disease, unspecified; K21.9 Gastro-esophageal reflux disease without esophagitis; Z90.11 Acquired absence of right breast and nipple; Z79.84 Long term (current) use of oral hypoglycemic drugs; N18.3 Chronic kidney disease, stage 3 (moderate); I48.91 Unspecified atrial fibrillation; Z85.3 Personal history of malignant neoplasm of breast; Z85.118 Personal history of other malignant neoplasm of bronchus and lung; G30.9 Alzheimer's disease, unspecified; M16.10 Unilateral primary osteoarthritis, unspecified hip; K44.9 Diaphragmatic hernia without obstruction or gangrene; I48.0 Paroxysmal atrial fibrillation; M10.9 Gout, unspecified; R51 Headache; K29.80 Duodenitis without bleeding; I12.9 Hypertensive chronic kidney disease with stage 1 through stage 4 chronic kidney disease, or unspecified chronic kidney disease; F02.80 Dementia in other diseases classified elsewhere, unspecified severity, without behavioral disturbance, psychotic disturbance, mood disturbance, and anxiety; E11.22 Type 2 diabetes mellitus with diabetic chronic kidney disease
CPT/HCPCS: 36415; 36430; 70450; 71046; 78278; 80048; 80053; 80069; 80156; 81001; 82270; 82728; 82947; 83540; 83550; 83735; 83880; 84484; 85014; 85018; 85025; 85027; 86850; 86900; 86901; 86923; 87086; 93005; 93010; 93306; 96374; 97161; 97530; 99285-25; A9560; C1751; C9113; J2250; J2704; J7120; P9016; P9612

== ENCOUNTER 2019-07-15 15:47 | Emergency (ER) | payer MEDICARE ==
[~2019-07-15] VITALS: Ht 154.9 cm; Wt 59.9 kg
[~2019-07-15 15:47] MED LIST changes: +ALLO100 PO; +AMLO10 PO; +CARB200 PO; +Ferus150 MG PO
[2019-07-15] MEDS ORDERED: Floxin10 ML LEFTEAR (16:33)
[2019-07-15] MEDS ORDERED: Cipro500 MG PO (16:34)
[2019-07-26] MEDS ORDERED: POTCHL20ER PO (20:51)
[2019-07-26] MEDS ORDERED: POTCHL20ER (22:15)
== END 2019-07-15 16:36 | disposition home or self-care (01) ==
LOC: ER 15:47
DX: H60.91 Unspecified otitis externa, right ear (principal); J44.9 Chronic obstructive pulmonary disease, unspecified; I13.0 Hypertensive heart and chronic kidney disease with heart failure and stage 1 through stage 4 chronic kidney disease, or unspecified chronic kidney disease; E11.22 Type 2 diabetes mellitus with diabetic chronic kidney disease; N18.3 Chronic kidney disease, stage 3 (moderate); I50.9 Heart failure, unspecified; K21.9 Gastro-esophageal reflux disease without esophagitis; I48.91 Unspecified atrial fibrillation; G30.9 Alzheimer's disease, unspecified; F02.80 Dementia in other diseases classified elsewhere, unspecified severity, without behavioral disturbance, psychotic disturbance, mood disturbance, and anxiety; Z88.8 Allergy status to other drugs, medicaments and biological substances; Z88.6 Allergy status to analgesic agent; Z88.2 Allergy status to sulfonamides; Z88.5 Allergy status to narcotic agent; Z79.899 Other long term (current) drug therapy; Z79.51 Long term (current) use of inhaled steroids; Z86.73 Personal history of transient ischemic attack (TIA), and cerebral infarction without residual deficits
CPT/HCPCS: 99282

== ENCOUNTER 2019-07-26 17:32 | Inpatient (IN) | payer MEDICARE ==
[~2019-07-26] VITALS: Ht 160 cm; Wt 56.8 kg
[~2019-07-26 17:32] MED LIST changes: +Cipro500 MG PO; +Floxin10 ML LEFTEAR
[2019-07-26 19:03] LABS: Hematocrit 46.6 % (33.0-51.0); Hemoglobin 13.6 g/dL (11.5-16.0); Mean Corpuscular HGB 28.6 pg (26.0-34.0); Mean Corpuscular HGB Conc 29.2 g/dL (31.5-36.5); Mean Corpuscular Volume 98 fL (80-100); Mean Platelet Volume 9.6 fL (9.1-12.4); NRBC ABSOLUTE 0.04 K/mm3 (0.00-0.02); NRBC Auto 0.1 /100 WBC (0.0-0.2); Platelet Count 678 K/mm3 (150-400); RDW Coefficient Variation 21.4 % (11.7-14.2); RDW Standard Deviation 77.1 fL (35.1-46.3); Red Blood Cell Count 4.76 M/mm3 (3.80-5.20)
[2019-07-26 19:26] LABS: BAND PERCENT MAN 3 % (0-8); BASOPHILS PERCENT MAN 0 % (0-2); EOSINOPHILS ABSOLUTE MAN 0.28 K/mm3 (0.00-0.68); EOSINOPHILS PERCENT MAN 1 % (0-6); LYMPHOCYTES PERCENT MAN 7 % (21-46); METAMYELOCYTE ABSOLUTE MAN 1.14 K/mm3 (0.00-0.00); METAMYELOCYTE PERCENT MAN 4 % (0-0); MONOCYTES ABSOLUTE MAN 0.85 K/mm3 (0.16-1.47); MONOCYTES PERCENT MAN 3 % (4-13); NEUTROPHILS ABSOLUTE MAN 24.31 K/mm3 (1.96-9.15); SEG NEUTROPHILS PERCENT MAN 82 % (41-73); TOTAL CELLS COUNTED 100
[2019-07-26 20:19] LABS: International Normalized Ratio 1.05; Prothrombin Time Results 11.1 Sec (9.7-11.5)
[2019-07-26 20:24] LABS: Albumin, Blood 3.2 g/dL (3.4-5.0); Albumin/Globulin Ratio 0.7 (0.8-1.8); Bilirubin, Total 0.3 mg/dL (0.1-1.0); Bun/Creatinine Ratio 21.9 (12.0-20.0); Calcium, Blood 9.5 mg/dL (8.5-10.1); Creatinine, Blood 2.37 mg/dL (0.40-1.00); Globulin, Blood 4.5 g/dL (2.2-4.0); Potassium, Blood 4.1 mmol/L (3.5-5.5); Total Protein, Blood 7.7 g/dL (6.4-8.2)
[2019-07-26] MEDS ORDERED: Aspir 8181 MG PO (20:50)
[2019-07-26] MEDS ORDERED: POTCHL20ER PO ×2 (20:51→22:15)
[2019-07-26] MEDS ORDERED: Flovent 44 mc10.6 GM INH (21:09)
[2019-07-26] MEDS ORDERED: TORS10 PO (21:12)
[2019-07-26] MEDS ORDERED: DONE10 PO (21:15)
[2019-07-26] MEDS ORDERED: TORSE20 PO (22:14)
[2019-07-26 22:30] LABS: Adenovirus F 40/41 Not Detected (NOT DETECT); Astrovirus Not Detected (NOT DETECT); Campylobacter Sp Not Detected (NOT DETECT); Cryptosporidium Not Detected (NOT DETECT); Cyclospora Cayetanensis Not Detected (NOT DETECT); E. Coli O157 Not Detected (NOT DETECT); Entamoeba Histolytica Not Detected (NOT DETECT); Enteroaggregative E. coli-EAEC Not Detected (NOT DETECT); Enteropathogenic E. coli-EPEC Not Detected (NOT DETECT); Enterotoxigenic E. coli-ETEC Not Detected (NOT DETECT); Giardia Lamblia Not Detected (NOT DETECT); Norovirus GI/GII Not Detected (NOT DETECT); Plesiomonas Shigelloides Not Detected (NOT DETECT); Rotavirus A Not Detected (NOT DETECT); Salmonella Sp Not Detected (NOT DETECT); Sapovirus Not Detected (NOT DETECT); Shiga Toxin-prod E. coli-STEC Not Detected (NOT DETECT); Shigella/Enteroin E. coli-EIEC Not Detected (NOT DETECT); Vibrio Cholerae Not Detected (NOT DETECT); Vibrio Sp Not Detected (NOT DETECT); Yersinia Enterocolitica Not Detected (NOT DETECT)
[2019-07-27 04:53] LABS: BASOPHILS ABSOLUTE AUTO 0.14 K/mm3 (0.00-0.23); BASOPHILS PERCENT AUTO 0 % (0-2); EOSINOPHILS PERCENT AUTO 0 % (0-6); Hematocrit 44.3 % (33.0-51.0); Hemoglobin 13.1 g/dL (11.5-16.0); IMMATURE GRAN ABSOLUTE AUTO 1.78 K/mm3 (0.00-0.10); IMMATURE GRAN PERCENT AUTO 5 % (0-1); LYMPHOCYTES ABSOLUTE AUTO 1.64 K/mm3 (0.84-5.20); LYMPHOCYTES PERCENT AUTO 5 % (21-46); MONOCYTES PERCENT AUTO 4 % (4-13); Mean Corpuscular HGB 28.5 pg (26.0-34.0); Mean Corpuscular HGB Conc 29.6 g/dL (31.5-36.5); Mean Corpuscular Volume 96 fL (80-100); Mean Platelet Volume 8.7 fL (9.1-12.4); NEUTROPHILS ABSOLUTE AUTO 31.37 K/mm3 (1.96-9.15); NEUTROPHILS PERCENT AUTO 86 % (41-73); NRBC ABSOLUTE 0.04 K/mm3 (0.00-0.02); NRBC Auto 0.1 /100 WBC (0.0-0.2); Platelet Count 659 K/mm3 (150-400); RDW Coefficient Variation 21.2 % (11.7-14.2); RDW Standard Deviation 73.9 fL (35.1-46.3); White Blood Cell Count 36.53 K/mm3 (4.00-11.30)
[2019-07-27 05:15] LABS: Bun/Creatinine Ratio 20.8 (12.0-20.0); Calcium, Blood 8.8 mg/dL (8.5-10.1); Creatinine, Blood 2.5 mg/dL (0.40-1.00); Potassium, Blood 4.4 mmol/L (3.5-5.5)
--- NOTE | 2019-07-27 06:39 | NUR ---
DIRECTOR CLINICAL INFORMATION SERVICES SUMMARY PATIENT SLEPT HARD THROUGHOUT NIGHT. PLEASANT AND COOPERATIVE WITH CARE. PER DAUGHTER, THIS IS HER BASELINE. ONLY ONE VERY SMALL BROWN LIQUID STOOL WITH SMALL BITS OF TISSUE MIXED WITH 150 ML OF CLEAR YELLOW URINE. NO COMPLAINTS OF DISCOMFORT. UNABLE TO ANSWER MAJORITY OF ADMISSION QUESTIONS, HOWEVER, DAUGHTER BONNIE WILL BE IN THIS MORNING. 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
[2019-07-27 17:57] LABS: Bilirubin, Urine Neg (Neg); Blood, Urine 1+ (Neg); Glucose Qualitative, Urine Neg (Neg); Ketones, Urine Neg (Neg); Leukocyte Esterase, Urine Neg (Neg); Nitrite, Urine Neg (Neg); Protein, Urine 3+ (Neg); Specific Gravity, Urine 1.015 (1.003-1.022); Urobilinogen, Urine NORM (Normal)
[2019-07-27 17:59] LABS: Color, Urine Yellow (P-Yellow)
[2019-07-27 18:03] LABS: Appearance, Urine Clear (Clear); Bacteria Few /hpf; Red Blood Cells, Urine 0-2 /hpf (0-2); Squamous Epithelial Cells Rare /hpf (Few); White Blood Cells, Urine 0-2 /hpf (0-5)
--- NOTE | 2019-07-27 18:40 | NUR ---
SHIFT SUMMARY PATIENT ORIENTED X3 WITH SHORT TERM MEMORY LOSS/DEMENTIA, SHE IS COOPERTIVE AND PLEASANT. DAUGHTER BONNIE ANSWERED QUESTIONS AND ADMISSION ASSESSMENT COMPLETED. PATIENT DENIES PAIN, SOB, SIGNIFICANT WEAKNESS OR TIREDNESS. AFTER GETTING TO THE COMMODE THIS MORNING SHE HAD 1 EPISODE OF NAUSEA BUT NO VOMITING, ZOFRAN GIVEN. PT HAS DRANK A GOOD AMOUNT OF LIQUIDS BEING ON THE CLEAR LIQUID DIET, THIS AFTERNOON DIET CHANGED TO FULL LIQUID. GI DR (DR Jaffe) MET WITH PATIENT AND ORDERED A CT WITHOUT CONTRAST. PT AMBULATED AROUND WAYCROSS WITH P.THERAPY, 4WW, OXYGEN AT 3L, GAIT BELT. AT HOME PATIENT WEARS 2L 02 NC NEEDED AND WHEN WALKING AROUND. PT HAD A BM 1X TODAY BUT COULD NOT COMPLETE GI PANEL IT WAS MIXED WITH URINE, DIRECTOR ADVANCED INFORMED. HIDE AND SKIN PROCESSING WORKER REPORTED IT TO BE SOFT,BROWN,MEDIUM.
--- NOTE | 2019-07-28 02:03 | NUR ---
Cheerful affect at shift commence. IVF of NS continues at 50 ml/hr as per MD orders. No complaints of pain or discomfort voiced. as been resting qietly with few interruptions since HS. Call light in reach.
[2019-07-28 04:34] LABS: Hematocrit 35.6 % (33.0-51.0); Hemoglobin 10.4 g/dL (11.5-16.0); Mean Corpuscular HGB 29.1 pg (26.0-34.0); Mean Corpuscular HGB Conc 29.2 g/dL (31.5-36.5); Mean Platelet Volume 8.8 fL (9.1-12.4); NRBC ABSOLUTE 0.02 K/mm3 (0.00-0.02); NRBC Auto 0.1 /100 WBC (0.0-0.2); Platelet Count 480 K/mm3 (150-400); RDW Coefficient Variation 21.2 % (11.7-14.2); RDW Standard Deviation 77.8 fL (35.1-46.3); Red Blood Cell Count 3.57 M/mm3 (3.80-5.20); White Blood Cell Count 18.21 K/mm3 (4.00-11.30)
[2019-07-28 04:36] LABS: Mean Corpuscular Volume 100 fL (80-100)
[2019-07-28 04:52] LABS: BASOPHILS PERCENT MAN 0 % (0-2); EOSINOPHILS ABSOLUTE MAN 0.18 K/mm3 (0.00-0.68); EOSINOPHILS PERCENT MAN 1 % (0-6); LYMPHOCYTES PERCENT MAN 11 % (21-46); METAMYELOCYTE ABSOLUTE MAN 0.54 K/mm3 (0.00-0.00); METAMYELOCYTE PERCENT MAN 3 % (0-0); MONOCYTES ABSOLUTE MAN 1.45 K/mm3 (0.16-1.47); MONOCYTES PERCENT MAN 8 % (4-13); MYELOCYTE ABSOLUTE MAN 0.18 K/mm3 (0.00-0.00); MYELOCYTE PERCENT MAN 1 % (0-0); NEUTROPHILS ABSOLUTE MAN 13.83 K/mm3 (1.96-9.15); SEG NEUTROPHILS PERCENT MAN 76 % (41-73); TOTAL CELLS COUNTED 100
[2019-07-28 05:01] LABS: Bun/Creatinine Ratio 20.9 (12.0-20.0); Creatinine, Blood 1.96 mg/dL (0.40-1.00); Potassium, Blood 3.8 mmol/L (3.5-5.5)
--- NOTE | 2019-07-28 05:53 | NUR ---
Noted that pt having IVF infusing, but has not voided since HS. Asymptomatic. Awakened, bladder scanned - over 600 cc in bladder, but pt denies need to void. No noted distress. Pt agreed to try to void soon, but was tired at this time. AM to follow up.
--- NOTE | 2019-07-28 06:36 | NUR ---
Daughter called, spoke with nurse re pt not voiding. Daughter stated this was not unusual with pt, she would encourage pt to void when she came to visit this am. Pt rseting quietly at this time. No noted distress.
--- NOTE | 2019-07-28 09:30 | NUR ---
Physician notified Clarified orders with Dr. Steven SHELBY protonix order. Received orders to DC continuous infusion of IV protonix and initiate 40 mg PO protonix daily starting today.
--- NOTE | 2019-07-28 17:00 | NUR ---
Shift Summary A/Ox2. Pleasant and cooperative with care. Uses call light appropriately and able to make needs known. Up in chair for most of the day. Family has been in to visit. Continent and uses bathroom. Has not had a bowel movement for me so stool sample remains uncollected. No other acute changes this shift.
[2019-07-29 04:20] LABS: BASOPHILS ABSOLUTE AUTO 0.04 K/mm3 (0.00-0.23); BASOPHILS PERCENT AUTO 0 % (0-2); EOSINOPHILS ABSOLUTE AUTO 0.14 K/mm3 (0.00-0.68); EOSINOPHILS PERCENT AUTO 1 % (0-6); Hematocrit 34.9 % (33.0-51.0); Hemoglobin 10.1 g/dL (11.5-16.0); IMMATURE GRAN ABSOLUTE AUTO 0.22 K/mm3 (0.00-0.10); IMMATURE GRAN PERCENT AUTO 2 % (0-1); LYMPHOCYTES ABSOLUTE AUTO 1.99 K/mm3 (0.84-5.20); LYMPHOCYTES PERCENT AUTO 16 % (21-46); MONOCYTES ABSOLUTE AUTO 1.25 K/mm3 (0.16-1.47); MONOCYTES PERCENT AUTO 10 % (4-13); Mean Corpuscular HGB 28.5 pg (26.0-34.0); Mean Corpuscular HGB Conc 28.9 g/dL (31.5-36.5); Mean Corpuscular Volume 99 fL (80-100); Mean Platelet Volume 8.8 fL (9.1-12.4); NEUTROPHILS PERCENT AUTO 71 % (41-73); Platelet Count 442 K/mm3 (150-400); RDW Coefficient Variation 20.9 % (11.7-14.2); RDW Standard Deviation 75.9 fL (35.1-46.3); Red Blood Cell Count 3.54 M/mm3 (3.80-5.20); White Blood Cell Count 12.64 K/mm3 (4.00-11.30)
--- NOTE | 2019-07-29 05:29 | NUR ---
SHIFT SUMMARY PT PLEASANT AND COOPERATIVE. NO BOWEL MOVEMENTS OR SIGNS OF BLEEDING THIS EVENING. PT DENIES ANY ABD PAIN OR DISCOMFORT OR NAUSEA. ABD SOFT AND NONTENDER. UPDATED DAUGHTER OVER THE PHONE ON HOW PT WAS DOING. PT SLEPT THROUGHOUT THE NIGHT WHEN NOT BEING WOKEN BY STAFF. NO ACUTE CHANGES THIS SHIFT. VITAL SIGNS STABLE. WILL CONTINUE TO MONITOR.
[2019-07-29] MEDS ORDERED: METR500 PO (11:49)
--- NOTE | 2019-07-29 15:48 | NUR ---
PT DCD HOME WITH DAUGHTER. ALL MED ORDERS AND FOLLOW UP APPTS REVIEWED WITH PT AND DAUGHTER WHO VERBALIZED AN UNDERSTANDING. ALL PERSONAL BELONGINGS SENT WITH PT. PT STABLE UPON DC.
== END 2019-07-29 15:54 | disposition home or self-care (01) | DRG 392 ==
LOC: ER 17:32 → MEDS 17:33
PROVIDERS: Hospitalist; Nurse Practitioner Acute Care; Physician Assistant; ADMIT Internal Medicine
DX: K52.9 Noninfective gastroenteritis and colitis, unspecified (principal); G30.9 Alzheimer's disease, unspecified; F02.80 Dementia in other diseases classified elsewhere, unspecified severity, without behavioral disturbance, psychotic disturbance, mood disturbance, and anxiety; I48.91 Unspecified atrial fibrillation; J44.9 Chronic obstructive pulmonary disease, unspecified; K44.9 Diaphragmatic hernia without obstruction or gangrene; K57.90 Diverticulosis of intestine, part unspecified, without perforation or abscess without bleeding; Z90.2 Acquired absence of lung [part of]; Z85.118 Personal history of other malignant neoplasm of bronchus and lung; E11.22 Type 2 diabetes mellitus with diabetic chronic kidney disease; I12.9 Hypertensive chronic kidney disease with stage 1 through stage 4 chronic kidney disease, or unspecified chronic kidney disease; N18.3 Chronic kidney disease, stage 3 (moderate)
CPT/HCPCS: 0097U; 36415; 74176; 80048; 80053; 81001; 82272; 83690; 85025; 85610; 85730; 86850; 86900; 86901; 94640; 94760; 96365; 96376; 97110; 97116; 97161; 97530; 99284-25; A9270-GY; C9113; J2405; J7030

== ENCOUNTER 2019-11-07 08:56 | Day surgery (SDC) | payer MEDICARE ==
[~2019-11-07] VITALS: Ht 154.9 cm; Wt 59.1 kg
[~2019-11-07 08:56] MED LIST changes: +ALBU2.5V5 INH; +Aspir 8181 MG PO; +Flovent 44 mc10.6 GM INH; +METR500 PO; +POTCHL20ER PO; +TORS10 PO
--- NOTE | 2019-11-07 10:45 | NUR ---
11/07/19 1045 Samanta Domingo PT RESTING COMFORTABLY IN BED, DENIES NEEDS AT THIS TIME. FAMILY AT BEDSIDE, QUESTIONS ANSWERED & TEACHING PROVIDED. CALL LIGHT WITHIN REACH. UPDATED ON DELAY OF CASE.
== END 2019-11-07 12:07 | disposition home or self-care (01) ==
LOC: ORSCSDS 08:56
PROVIDERS: Otolaryngology
PROC: 099570Z Drainage of Right Middle Ear with Drainage Device, Via Natural or Artificial Opening (ICD-10-PCS; principal; 2019-11-07 10:30)
PROC: 099670Z Drainage of Left Middle Ear with Drainage Device, Via Natural or Artificial Opening (ICD-10-PCS; principal; 2019-11-07 10:30)
DX: H65.23 Chronic serous otitis media, bilateral (principal); H90.6 Mixed conductive and sensorineural hearing loss, bilateral; I25.2 Old myocardial infarction; I48.91 Unspecified atrial fibrillation; I25.10 Atherosclerotic heart disease of native coronary artery without angina pectoris; J45.909 Unspecified asthma, uncomplicated; Z87.891 Personal history of nicotine dependence; Z79.82 Long term (current) use of aspirin; Z79.899 Other long term (current) drug therapy
CPT/HCPCS: 82947; J2704; J7120

== ENCOUNTER 2019-11-15 11:29 | Day surgery (SDC) | payer MEDICARE ==
[~2019-11-15] VITALS: Ht 160 cm; Wt 57.6 kg
--- NOTE | 2019-11-15 13:31 | NUR ---
11/15/19 1331 Mandy Prescott 4ML NORMAL SALINE USED TO ELEVATE ASCENDING COLON POLYP.
== END 2019-11-15 14:09 | disposition home or self-care (01) ==
LOC: ORSCSDS 11:29
PROVIDERS: Internal Medicine Gastroenterology
PROC: 0D7L8ZZ Dilation of Transverse Colon, Via Natural or Artificial Opening Endoscopic (ICD-10-PCS; principal; 2019-11-15 12:45)
PROC: 0DBK8ZX Excision of Ascending Colon, Via Natural or Artificial Opening Endoscopic, Diagnostic (ICD-10-PCS; principal; 2019-11-15 12:45)
PROC: 0DBE8ZX Excision of Large Intestine, Via Natural or Artificial Opening Endoscopic, Diagnostic (ICD-10-PCS; principal; 2019-11-15 12:45)
DX: Z12.11 Encounter for screening for malignant neoplasm of colon (principal); Z86.010 Personal history of colon polyps; D12.3 Benign neoplasm of transverse colon; D12.2 Benign neoplasm of ascending colon; K57.30 Diverticulosis of large intestine without perforation or abscess without bleeding; K64.8 Other hemorrhoids; K56.699 Other intestinal obstruction unspecified as to partial versus complete obstruction; I10 Essential (primary) hypertension; I48.91 Unspecified atrial fibrillation; Z79.01 Long term (current) use of anticoagulants; J44.9 Chronic obstructive pulmonary disease, unspecified; N18.9 Chronic kidney disease, unspecified; Z86.73 Personal history of transient ischemic attack (TIA), and cerebral infarction without residual deficits; G30.9 Alzheimer's disease, unspecified; F02.80 Dementia in other diseases classified elsewhere, unspecified severity, without behavioral disturbance, psychotic disturbance, mood disturbance, and anxiety; K21.9 Gastro-esophageal reflux disease without esophagitis; Z79.899 Other long term (current) drug therapy; F17.210 Nicotine dependence, cigarettes, uncomplicated
CPT/HCPCS: 82947; 88305; C1726; J2250; J2704; J7030

== ENCOUNTER 2019-11-21 17:48 | Emergency (ER) | payer MEDICARE ==
[~2019-11-21] VITALS: Ht 157.5 cm; Wt 57.6 kg
[2019-11-21 18:44] LABS: BASOPHILS ABSOLUTE AUTO 0.04 K/mm3 (0.00-0.23); BASOPHILS PERCENT AUTO 0 % (0-2); EOSINOPHILS ABSOLUTE AUTO 0.54 K/mm3 (0.00-0.68); EOSINOPHILS PERCENT AUTO 6 % (0-6); Hemoglobin 9.9 g/dL (11.5-16.0); IMMATURE GRAN ABSOLUTE AUTO 0.05 K/mm3 (0.00-0.10); IMMATURE GRAN PERCENT AUTO 1 % (0-1); LYMPHOCYTES ABSOLUTE AUTO 1.33 K/mm3 (0.84-5.20); LYMPHOCYTES PERCENT AUTO 14 % (21-46); MONOCYTES ABSOLUTE AUTO 1.32 K/mm3 (0.16-1.47); MONOCYTES PERCENT AUTO 14 % (4-13); Mean Corpuscular HGB 31.7 pg (26.0-34.0); Mean Corpuscular HGB Conc 30.9 g/dL (31.5-36.5); Mean Corpuscular Volume 103 fL (80-100); Mean Platelet Volume 8.5 fL (9.1-12.4); NEUTROPHILS ABSOLUTE AUTO 6.51 K/mm3 (1.96-9.15); NEUTROPHILS PERCENT AUTO 67 % (41-73); Platelet Count 549 K/mm3 (150-400); RDW Coefficient Variation 15.7 % (11.7-14.2); RDW Standard Deviation 56.2 fL (35.1-46.3); Red Blood Cell Count 3.12 M/mm3 (3.80-5.20); White Blood Cell Count 9.79 K/mm3 (4.00-11.30)
[2019-11-21 19:06] LABS: Alanine Aminotransfer (ALT/SGP 15 U/L (12-78); Albumin, Blood 3.3 g/dL (3.4-5.0); Albumin/Globulin Ratio 0.8 (0.8-1.8); Alk Phos 93 U/L (50-136); Anion Gap 5 mmol/L (6-16); Aspartate Aminotrans (AST/SGOT 21 U/L (12-37); Bilirubin, Total 0.2 mg/dL (0.1-1.0); Blood Urea Nitrogen 31 mg/dL (8-24); Bun/Creatinine Ratio 23.3 (12.0-20.0); CO2, Blood 29 mmol/L (21-32); Calcium, Blood 9.4 mg/dL (8.5-10.1); Chloride, Blood 101 mmol/L (98-108); Creatinine, Blood 1.33 mg/dL (0.40-1.00); Glomerular Filtration Rate 41 (60-); Glucose, Blood 122 mg/dL (70-99); Potassium, Blood 3.4 mmol/L (3.5-5.5); Sodium, Blood 135 mmol/L (136-145); Total Protein, Blood 7.3 g/dL (6.4-8.2)
[2019-11-21 22:42] LABS: Troponin I <0.015 ng/mL (0.000-0.040)
[2019-11-21] MEDS ORDERED: PRED20 PO (23:53)
[2019-11-21] MEDS ORDERED: ALBU2.5V5 INH (23:53)
[2019-11-21] MEDS ORDERED: AZIT500 PO (23:53)
== END 2019-11-22 00:18 | disposition home or self-care (01) ==
LOC: ER 17:48
PROVIDERS: Physician Assistant
DX: J44.1 Chronic obstructive pulmonary disease with (acute) exacerbation (principal); E11.22 Type 2 diabetes mellitus with diabetic chronic kidney disease; N18.9 Chronic kidney disease, unspecified; I48.91 Unspecified atrial fibrillation; G30.9 Alzheimer's disease, unspecified; F02.80 Dementia in other diseases classified elsewhere, unspecified severity, without behavioral disturbance, psychotic disturbance, mood disturbance, and anxiety; Z88.6 Allergy status to analgesic agent; Z88.8 Allergy status to other drugs, medicaments and biological substances; Z88.2 Allergy status to sulfonamides; Z88.5 Allergy status to narcotic agent; Z88.1 Allergy status to other antibiotic agents; Z79.899 Other long term (current) drug therapy; Z79.82 Long term (current) use of aspirin; Z79.51 Long term (current) use of inhaled steroids; Z87.891 Personal history of nicotine dependence
CPT/HCPCS: 71046; 80053; 84484; 85025; 94644; 99284-25; J7512

== ENCOUNTER 2020-03-06 13:20 | Emergency (ER) | payer MEDICARE ==
[~2020-03-06] VITALS: Ht 154.9 cm; Wt 59.0 kg
[2020-03-06 18:06] LABS: Source, Urine Clean Catch
[2020-03-06 18:10] LABS: Appearance, Urine Clear (Clear); Bilirubin, Urine Neg (Neg); Blood, Urine Neg (Neg); Color, Urine Pale Yellow (P-Yellow); Glucose Qualitative, Urine Neg (Neg); Ketones, Urine Neg (Neg); Leukocyte Esterase, Urine Neg (Neg); Nitrite, Urine Neg (Neg); Protein, Urine 1+ (Neg); Urobilinogen, Urine NORM (Normal)
[2020-03-06 18:48] LABS: BASOPHILS ABSOLUTE AUTO 0.02 K/mm3 (0.00-0.23); BASOPHILS PERCENT AUTO 0 % (0-2); EOSINOPHILS PERCENT AUTO 0 % (0-6); Hematocrit 47.9 % (33.0-51.0); Hemoglobin 15.1 g/dL (11.5-16.0); IMMATURE GRAN ABSOLUTE AUTO 0.18 K/mm3 (0.00-0.10); IMMATURE GRAN PERCENT AUTO 2 % (0-1); LYMPHOCYTES PERCENT AUTO 10 % (21-46); MONOCYTES PERCENT AUTO 3 % (4-13); Mean Corpuscular HGB 30.1 pg (26.0-34.0); Mean Corpuscular HGB Conc 31.5 g/dL (31.5-36.5); Mean Corpuscular Volume 95 fL (80-100); Mean Platelet Volume 9.7 fL (9.1-12.4); NEUTROPHILS ABSOLUTE AUTO 10.53 K/mm3 (1.96-9.15); NEUTROPHILS PERCENT AUTO 86 % (41-73); Platelet Count 542 K/mm3 (150-400); RDW Coefficient Variation 15.3 % (11.7-14.2); Red Blood Cell Count 5.02 M/mm3 (3.80-5.20); White Blood Cell Count 12.23 K/mm3 (4.00-11.30)
[2020-03-06 19:02] LABS: Albumin, Blood 4.2 g/dL (3.4-5.0); Bilirubin, Total 0.4 mg/dL (0.1-1.0); Bun/Creatinine Ratio 37.2 (12.0-20.0); Calcium, Blood 9.8 mg/dL (8.5-10.1); Creatinine, Blood 1.56 mg/dL (0.40-1.00); Globulin, Blood 4.1 g/dL (2.2-4.0); Potassium, Blood 5.4 mmol/L (3.5-5.5); Total Protein, Blood 8.3 g/dL (6.4-8.2)
== END 2020-03-06 21:00 | disposition home or self-care (01) ==
LOC: ER 13:20
PROVIDERS: Physician Assistant
DX: E11.22 Type 2 diabetes mellitus with diabetic chronic kidney disease (principal); N18.9 Chronic kidney disease, unspecified; R74.0 Nonspecific elevation of levels of transaminase and lactic acid dehydrogenase [LDH]; Z88.6 Allergy status to analgesic agent; Z88.5 Allergy status to narcotic agent; Z88.8 Allergy status to other drugs, medicaments and biological substances; Z88.2 Allergy status to sulfonamides; Z88.1 Allergy status to other antibiotic agents; Z79.2 Long term (current) use of antibiotics; Z79.899 Other long term (current) drug therapy; Z79.82 Long term (current) use of aspirin; Z79.52 Long term (current) use of systemic steroids; J44.9 Chronic obstructive pulmonary disease, unspecified; I48.91 Unspecified atrial fibrillation; Z87.891 Personal history of nicotine dependence
CPT/HCPCS: 70450; 71045; 76705; 80053; 85025; 93005; 93010; 96374; 96375; 99284-25; J1200; J2765; J3010

== ENCOUNTER 2020-04-15 15:09 | Inpatient (IN) | payer MEDICARE ==
[~2020-04-15] VITALS: Ht 154.9 cm; Wt 56.5 kg
[~2020-04-15 15:09] MED LIST changes: +FERREX 150150 M1 PO; -Ferus150 MG PO
[2020-04-15 16:12] LABS: BASOPHILS ABSOLUTE AUTO 0.05 K/mm3 (0.00-0.23); BASOPHILS PERCENT AUTO 1 % (0-2); EOSINOPHILS ABSOLUTE AUTO 0.09 K/mm3 (0.00-0.68); EOSINOPHILS PERCENT AUTO 1 % (0-6); Hematocrit 38.7 % (33.0-51.0); Hemoglobin 12.1 g/dL (11.5-16.0); IMMATURE GRAN PERCENT AUTO 3 % (0-1); LYMPHOCYTES ABSOLUTE AUTO 1.83 K/mm3 (0.84-5.20); LYMPHOCYTES PERCENT AUTO 17 % (21-46); MONOCYTES PERCENT AUTO 11 % (4-13); Mean Corpuscular HGB 29.2 pg (26.0-34.0); Mean Corpuscular HGB Conc 31.3 g/dL (31.5-36.5); Mean Corpuscular Volume 94 fL (80-100); Mean Platelet Volume 10.1 fL (9.1-12.4); NEUTROPHILS ABSOLUTE AUTO 7.07 K/mm3 (1.96-9.15); NEUTROPHILS PERCENT AUTO 67 % (41-73); NRBC ABSOLUTE 0.02 K/mm3 (0.00-0.02); NRBC Auto 0.2 /100 WBC (0.0-0.2); Platelet Count 352 K/mm3 (150-400); RDW Coefficient Variation 16.1 % (11.7-14.2); RDW Standard Deviation 55.8 fL (35.1-46.3); Red Blood Cell Count 4.14 M/mm3 (3.80-5.20); White Blood Cell Count 10.54 K/mm3 (4.00-11.30)
[2020-04-15 16:38] LABS: Alanine Aminotransfer (ALT/SGP 31 U/L (12-78); Albumin, Blood 2.6 g/dL (3.4-5.0); Albumin/Globulin Ratio 0.6 (0.8-1.8); Alk Phos 183 U/L (50-136); Anion Gap 9 mmol/L (6-16); Aspartate Aminotrans (AST/SGOT 215 U/L (12-37); Bilirubin, Total 0.4 mg/dL (0.1-1.0); Blood Urea Nitrogen 55 mg/dL (8-24); Bun/Creatinine Ratio 45.8 (12.0-20.0); CO2, Blood 24 mmol/L (21-32); Calcium, Blood 9.2 mg/dL (8.5-10.1); Chloride, Blood 104 mmol/L (98-108); Globulin, Blood 4.2 g/dL (2.2-4.0); Glomerular Filtration Rate 46 (60-); Glucose, Blood 133 mg/dL (70-99); Potassium, Blood 3.6 mmol/L (3.5-5.5); Sodium, Blood 137 mmol/L (136-145); Total Protein, Blood 6.8 g/dL (6.4-8.2); Troponin I <0.015 ng/mL (0.000-0.040)
[2020-04-15] MEDS ORDERED: Flovent Diskus50 MCG IH (17:29)
[2020-04-15] MEDS ORDERED: Potassium Chlo20 ME1 PO (19:14)
[2020-04-15] MEDS ORDERED: FLOVENT HFA12 GM INH (19:15)
--- NOTE | 2020-04-15 22:02 | NUR ---
CALLED SAVANNA TO VERIFY NO COVID TEST ORDERED, SAVANNA STATES DOES NOT FEEL LIKE IT IS NEEDED AT THIS TIME.
[2020-04-16 00:57] LABS: BASOPHILS ABSOLUTE AUTO 0.04 K/mm3 (0.00-0.23); BASOPHILS PERCENT AUTO 0 % (0-2); EOSINOPHILS ABSOLUTE AUTO 0.01 K/mm3 (0.00-0.68); EOSINOPHILS PERCENT AUTO 0 % (0-6); Hematocrit 35.2 % (33.0-51.0); Hemoglobin 10.7 g/dL (11.5-16.0); IMMATURE GRAN PERCENT AUTO 5 % (0-1); LYMPHOCYTES ABSOLUTE AUTO 1.27 K/mm3 (0.84-5.20); LYMPHOCYTES PERCENT AUTO 12 % (21-46); MONOCYTES ABSOLUTE AUTO 0.44 K/mm3 (0.16-1.47); MONOCYTES PERCENT AUTO 4 % (4-13); Mean Corpuscular HGB 28.9 pg (26.0-34.0); Mean Corpuscular HGB Conc 30.4 g/dL (31.5-36.5); Mean Corpuscular Volume 95 fL (80-100); Mean Platelet Volume 10.1 fL (9.1-12.4); NEUTROPHILS ABSOLUTE AUTO 8.42 K/mm3 (1.96-9.15); NEUTROPHILS PERCENT AUTO 79 % (41-73); Platelet Count 336 K/mm3 (150-400); RDW Coefficient Variation 16.2 % (11.7-14.2); RDW Standard Deviation 56.9 fL (35.1-46.3); White Blood Cell Count 10.68 K/mm3 (4.00-11.30)
[2020-04-16 01:19] LABS: Bun/Creatinine Ratio 40.8 (12.0-20.0); Calcium, Blood 8.9 mg/dL (8.5-10.1); Creatinine, Blood 1.42 mg/dL (0.40-1.00)
--- NOTE | 2020-04-16 04:20 | NUR ---
SUMMARY PT ARRIVED TO FLOOR IN DISTRESS. PT TRANSFERED FROM [facility] TO BED W/ ASSISTANCE. PT BECAME SOB W/ MINIMAL EXERTION. PT STATED SHE USE O2 VIA NC @ 2LPM AT NIGHT. O2 PLACED ON PT. CRITAL LATIC RESULTS WERE CALLED INTO DR RANDALL. PROVIDER ORDERD NS RATE INCREASED TO 100 ML/HR. PT DEVELOPED SOME WHEEZES AND RT RESPONDED W/ UDN TX. PT HAS HAD A PERSISTANT COUGH W/ PRODUCTION. PT BECOMES SOB EASILY W/ COUGH. PT IS STILL ABLE TO TALK AND SPO2 IS >90. PT CURRENTLY AWAKE AND IN NO DISTRESS. CALL LIGHT IN REACH AND BED ALARM IS ON.
[2020-04-16 13:45] LABS: Adenovirus Not Detected (NOT DETECT); Bordetella pertussis Not Detected (NOT DETECT); Chlamydophila pneumoniae Not Detected (NOT DETECT); Coronavirus 229E Not Detected (NOT DETECT); Coronavirus HKU1 Not Detected (NOT DETECT); Coronavirus NL63 Not Detected (NOT DETECT); Coronavirus OC43 Not Detected (NOT DETECT); Human Metapneumovirus Not Detected (NOT DETECT); Human Rhinovirus/Enterovirus Not Detected (NOT DETECT); Influenza A/2009-H1 Not Detected (NOT DETECT); Influenza A/H1 Not Detected (NOT DETECT); Influenza A/H3 Not Detected (NOT DETECT); Influenza B Not Detected (NOT DETECT); Mycoplasma pneumoniae Not Detected (NOT DETECT); Parainfluenza Virus 1 Not Detected (NOT DETECT); Parainfluenza Virus 2 Not Detected (NOT DETECT); Parainfluenza Virus 3 Not Detected (NOT DETECT); Parainfluenza Virus 4 Not Detected (NOT DETECT); Respiratory Syncytial Virus Not Detected (NOT DETECT)
[2020-04-16] MEDS ORDERED: ALBU2.5V5 INH (14:53)
--- NOTE | 2020-04-16 19:35 | NUR ---
PT QUITE PLEASANT TODAY. A/O X3, DISCOVERED SHORT TERM MEMORY POOR. ALTHOUGH CAN ANSWER MOST QUESTIONS NORMALLY, FORGETS I WAS EVEN THERE TODAY. DR ADJUSTED ABX TODAY. ADDITIONAL LITER FLUID. NO NEW CONCERNS. BED IN LOW POSITION, SUSANNE LITE IN REACH, BED ALARM ON FOR SAFETY
[2020-04-17 04:54] LABS: BASOPHILS ABSOLUTE AUTO 0.06 K/mm3 (0.00-0.23); BASOPHILS PERCENT AUTO 1 % (0-2); EOSINOPHILS ABSOLUTE AUTO 0.13 K/mm3 (0.00-0.68); EOSINOPHILS PERCENT AUTO 1 % (0-6); Hematocrit 32.6 % (33.0-51.0); Hemoglobin 9.9 g/dL (11.5-16.0); IMMATURE GRAN ABSOLUTE AUTO 0.62 K/mm3 (0.00-0.10); IMMATURE GRAN PERCENT AUTO 6 % (0-1); LYMPHOCYTES ABSOLUTE AUTO 1.65 K/mm3 (0.84-5.20); LYMPHOCYTES PERCENT AUTO 15 % (21-46); MONOCYTES ABSOLUTE AUTO 1.06 K/mm3 (0.16-1.47); MONOCYTES PERCENT AUTO 10 % (4-13); Mean Corpuscular HGB 28.9 pg (26.0-34.0); Mean Corpuscular HGB Conc 30.4 g/dL (31.5-36.5); Mean Corpuscular Volume 95 fL (80-100); NEUTROPHILS ABSOLUTE AUTO 7.26 K/mm3 (1.96-9.15); NEUTROPHILS PERCENT AUTO 67 % (41-73); Platelet Count 316 K/mm3 (150-400); RDW Coefficient Variation 16.4 % (11.7-14.2); Red Blood Cell Count 3.42 M/mm3 (3.80-5.20); White Blood Cell Count 10.78 K/mm3 (4.00-11.30)
[2020-04-17 05:08] LABS: Albumin, Blood 2.3 g/dL (3.4-5.0); Anion Gap 8 mmol/L (6-16); Blood Urea Nitrogen 52 mg/dL (8-24); Bun/Creatinine Ratio 38.8 (12.0-20.0); CO2, Blood 23 mmol/L (21-32); Calcium, Blood 8.2 mg/dL (8.5-10.1); Chloride, Blood 109 mmol/L (98-108); Creatinine, Blood 1.34 mg/dL (0.40-1.00); Glomerular Filtration Rate 40 (60-); Glucose, Blood 80 mg/dL (70-99); Phosphorus, Blood 1.6 mg/dL (2.5-4.9); Potassium, Blood 3.9 mmol/L (3.5-5.5); Sodium, Blood 140 mmol/L (136-145)
--- NOTE | 2020-04-17 07:40 | NUR ---
SUMMARY PT HAD NO EPISODES OF COUGHING THIS SHIFT. PT MAIN COMPLAINT THIS SHIFT HAS BEEN LOW BACK, BILAT HIP PAIN. PT STATES IT HAS BEEN AWHILE SINCE HER PAIN HAD BEEN THIS SEVERE. DAUGHTER CALLED AND SHE STATED PT USUALLY PUTS A CREAM ON HER BACK. PROVIDER CALLED AND OT OXYCODONE WAS ORDERED. PAIN MED PROVIDED RELIEF AND PT ABLE TO SLEEP. HEATING PAD ALSO PLACED. PT HAS BEEN VOIDING AND AMBULATING W/ ASSISTANCE. PT WOKE UP THIS AM PAINFUL. DAY RN INFORMED. CALL LIGHT IN REACH AND BED ALARM ON.
--- NOTE | 2020-04-17 18:18 | NUR ---
SHIFT SUMMARY: NO ACUTE EVENTS THIS SHIFT. A&O X 2, PLEASANT AND COOPERATIVE. USING OXYGEN @ 2 L/MIN NC; ATTEMPTED TO WEAN FROM O2, BUT PT REQUIRES PROLONGED RECOVERY PERIOD AFTER ANY ACTIVITY, IS QUITE DYSPNEIC WITH EXERTION. C/O BACK AND R HIP PAIN; MEDICATED PER EMAR WITH ADEQUATE RELIEF, AND MOVED FROM CHAIR TO BED OFTEN WITH 1 PERSON ASSIST. USING BR, NO BM TODAY. PHOSPHORUS REPLACED. HAD CHEST CT, WHICH SHOWED METASTATIC LUNG CA. PT RELATED THAT SHE IS SAD TO BE LEAVING HER GRANDSONS BEHIND, BUT HAS HAD A GOOD LIFE. STATED HER DAUGHTER VISITED TODAY. PULMONARY CONSULT PENDING.
--- NOTE | 2020-04-18 04:29 | NUR ---
SUMMARY PT HAD NO ISSUES NOTED THIS SHIFT. PT HAD NO ISSUES WITH PAIN WELL. PT CONTINUES TO GET SOB W/ EXERTION. PT HAS BEEN ON O2 FOR THE SHIFT. PT HAS BEEN VOIDING AND CALLING FOR ASSISTANCE. PT HAS SLEPT WELL THIS SHIFT. PT CURRENTLY SLEEPING AND BREATHING EASY. CALL LIGHT IN REACH AND BED ALARM ON.
--- NOTE | 2020-04-18 18:02 | NUR ---
Shift Summary A/Ox3 with occassional forgetfulness. Pleasant and cooperative. Patient had one albuteral prn today for wheezing, continues to be on 2L NC continuous (baseline is HS only). Daughter was at the bedside for a brief moment today. Denies any pain. No acute events or concerns. Will continue to monitor.
--- NOTE | 2020-04-18 22:01 | NUR ---
RECEIVED ANALGESIC PRIOR TO SHIFT COMMENCE, NOW ERSTING QUIETLY. NO NOTED ACUTE DISTRESS. CALL LIGHT IN REACH
--- NOTE | 2020-04-19 17:55 | NUR ---
Shift Summary Up in chair for most meals as tolerated. Medicated x 1 for back/hip pain with good results. Heat pack in place for comfort. Plan for liver biopsy tomorrow 04/20/20, NPO at midnight. Will pass this on to receiving RN. No other changes.
--- NOTE | 2020-04-19 22:54 | NUR ---
2120 PT SITTING IN CHAIR AT BEDSIDE. PT DENIES ANY DISCOMFORT AT THIS TIME. ON 2L O2 NC AT 95%. PT DECLINES SCD'S AT THIS TIME. NO OTHER APPARENT SIGNS OF DISTRESS. CALL LIGHT IS IN REACH.
--- NOTE | 2020-04-19 23:47 | NUR ---
PT LYING IN BED, AWAKE, DENIES NEED FOR ANYTHING AT THIS TIME. NO APPARENT SIGNS OF DISTRESS. CALL LIGHT IS IN REACH.
--- NOTE | 2020-04-20 01:49 | NUR ---
PT LYING IN BED, AWAKE, DENIES NEED FOR ANYTHING AT THIS TIMES. NO APPARENT SIGNS OF DISTRESS. CALL LIGHT IS IN REACH.
--- NOTE | 2020-04-20 03:41 | NUR ---
PT IS AAO X 3-4, SOME SLIGHT ALZHEIMERS. ON 2L O2 NC AT 95%. DENIES SOB. DENIED DISCOMFORT FOR THIS SHIFT. DECLINED SCD'S. USES HEATING PAD ON BACK. LAST BM 04/16, NO BOWEL CARE ORDERED. TELLER.
--- NOTE | 2020-04-20 03:41 | NUR ---
PT LYING IN BED, EYES CLOSED, APPEARS TO BE RESTING. BREATHING IS EVEN, UNLABORED. NO APPARENT SIGNS OF DISTRESS. CALL LIGHT IS IN REACH.
[2020-04-20 05:22] LABS: International Normalized Ratio 1.06; Prothrombin Time Results 11.3 Sec (9.7-11.5)
--- NOTE | 2020-04-20 05:41 | NUR ---
PT LYING IN BED, EYES CLOSED, APPEARS TO BE RESTING. BREATHING IS EVEN, UNLABORED. NO APPARENT SIGNS OF DISTRESS. CALL LIGHT IS IN REACH. NO OTHER CHANGES THIS SHIFT.
--- NOTE | 2020-04-20 06:37 | NUR ---
ASSISTED PT TO BATHROOM. NO OTHER APPARENT SIGNS OF DISTRESS. CALL CORD IN REACH, ENVIRONMENTAL TEST TECHNICIAN AWARE.
--- NOTE | 2020-04-20 06:47 | NUR ---
PT REQUESTED AND RECIEVED TYLENOL FOR R SIDE PAIN, WILL EVAL FOR EFFECT. NO OTHER APPARENT SIGNS OF DISTRESS. CALL LIGHT IS IN REACH.
--- NOTE | 2020-04-20 16:59 | NUR ---
Discharge Summary A/Ox2-3. Patient discharged to home with HH. Reviewed discharge paperwork with daughter (Rashida) at bedside. Explained Scheduling will notifty them of time for liver biopsy. All documentation (paper order form and prescription for liver biopsy for tomorrow 04/20) has been faxed to Akil in Scheduling as requested. Rapid COVID test was completed on 04/16, this was negative. Referrals made, appointments were completed by Rashida and verified by this RN. Currently working on establishing PCP at [facility] and is "long-term done with the packet" per aRshida. Patient had a shower today. Up in room with SBA and FWW. Calls appropriately using call light. Patient has been forgetful as she states "I don't think I've seen Rashida today" when in fact Rashida was here this morning. Anyway, instructed to remain NPO after midnight for possible biopsy tomorrow. O2 eval completed by RT Gissel. Patient did not require O2 at rest or exertion per Gissel. No acute concerns today.
== END 2020-04-20 16:50 | disposition home health service (06) | DRG 871 ==
LOC: ER 15:09 → MEDS 15:10 → ENPENDDIS 04-20 12:30 → MEDS 04-20 16:50
PROVIDERS: Family Medicine; Internal Medicine Critical Care Medicine; Nurse Practitioner Acute Care; Physician Assistant; ADMIT Internal Medicine
DX: A41.9 Sepsis, unspecified organism (principal); J96.21 Acute and chronic respiratory failure with hypoxia; J18.9 Pneumonia, unspecified organism; J44.0 Chronic obstructive pulmonary disease with (acute) lower respiratory infection; J44.1 Chronic obstructive pulmonary disease with (acute) exacerbation; C34.91 Malignant neoplasm of unspecified part of right bronchus or lung; C77.8 Secondary and unspecified malignant neoplasm of lymph nodes of multiple regions; C78.1 Secondary malignant neoplasm of mediastinum; C78.7 Secondary malignant neoplasm of liver and intrahepatic bile duct; Z20.828 Contact with and (suspected) exposure to other viral communicable diseases; R65.20 Severe sepsis without septic shock; N18.3 Chronic kidney disease, stage 3 (moderate); D63.1 Anemia in chronic kidney disease; K21.9 Gastro-esophageal reflux disease without esophagitis; I12.9 Hypertensive chronic kidney disease with stage 1 through stage 4 chronic kidney disease, or unspecified chronic kidney disease; E11.22 Type 2 diabetes mellitus with diabetic chronic kidney disease; I25.10 Atherosclerotic heart disease of native coronary artery without angina pectoris; G30.9 Alzheimer's disease, unspecified; F02.80 Dementia in other diseases classified elsewhere, unspecified severity, without behavioral disturbance, psychotic disturbance, mood disturbance, and anxiety; Z66 Do not resuscitate; Z86.73 Personal history of transient ischemic attack (TIA), and cerebral infarction without residual deficits; Z85.3 Personal history of malignant neoplasm of breast; Z92.21 Personal history of antineoplastic chemotherapy; Z92.3 Personal history of irradiation; Z79.82 Long term (current) use of aspirin; Z87.891 Personal history of nicotine dependence
CPT/HCPCS: 0099U; 36415; 71046; 71250; 80048; 80053; 80069; 83605; 83880; 84145; 84484; 85025; 85610; 85730; 87040; 92610; 93005; 93010; 94640; 94644; 94664; 94667; 94668; 94760; 94761; 96365; 97116; 97162; 97165; 97530; 97535; 98960; 99285-25; A9270; A9270-GY; J0456; J0692; J7030; J7050; J7512; U0002

== ENCOUNTER 2020-06-17 09:16 | Day surgery (SDC) | payer MEDICARE ==
[~2020-06-17 09:16] MED LIST changes: +FLOVENT HFA12 GM INH; +Flovent Diskus50 MCG IH; +Potassium Chlo20 ME1 PO
== END 2020-06-17 10:47 | disposition home or self-care (01) ==
LOC: ATC 09:16
DX: C34.31 Malignant neoplasm of lower lobe, right bronchus or lung (principal); E11.9 Type 2 diabetes mellitus without complications; I10 Essential (primary) hypertension; D63.0 Anemia in neoplastic disease; C79.51 Secondary malignant neoplasm of bone; C77.1 Secondary and unspecified malignant neoplasm of intrathoracic lymph nodes; C78.7 Secondary malignant neoplasm of liver and intrahepatic bile duct; Z88.5 Allergy status to narcotic agent; Z87.891 Personal history of nicotine dependence; Z88.8 Allergy status to other drugs, medicaments and biological substances; Z88.0 Allergy status to penicillin; Z88.2 Allergy status to sulfonamides; Z91.018 Allergy to other foods; Z79.82 Long term (current) use of aspirin; Z79.899 Other long term (current) drug therapy
CPT/HCPCS: C1751

== ENCOUNTER 2020-07-06 00:12 | Day surgery (SDC) | payer MEDICARE ==
--- NOTE | 2020-07-06 12:06 | NUR ---
ATTEMPTED POWER-GLIDE IN BOTH ARMS. PT TOLERATED PROCEDURE WELL. SPOKE WITH DAUGHTER ABOUT IV STATUS. PT NEEDS TO DRINK PLENTY OF WATER AND STAY WARM. VEINS IN ARMS WERE GOING FLAT WHEN WHEN NEEDLED TOUCHED THEM. WILL HAVE PT RETURN TO CLINIC AND START IV FOR CCC.
== END 2020-07-06 11:15 | disposition home or self-care (01) ==
LOC: ATC 00:12
DX: C34.31 Malignant neoplasm of lower lobe, right bronchus or lung (principal); C79.51 Secondary malignant neoplasm of bone; C77.1 Secondary and unspecified malignant neoplasm of intrathoracic lymph nodes; C78.7 Secondary malignant neoplasm of liver and intrahepatic bile duct; I10 Essential (primary) hypertension; E11.9 Type 2 diabetes mellitus without complications; Z88.1 Allergy status to other antibiotic agents; Z88.5 Allergy status to narcotic agent; Z88.0 Allergy status to penicillin; Z88.8 Allergy status to other drugs, medicaments and biological substances; Z91.018 Allergy to other foods; Z87.891 Personal history of nicotine dependence; J44.9 Chronic obstructive pulmonary disease, unspecified; Z79.899 Other long term (current) drug therapy; Z79.82 Long term (current) use of aspirin
CPT/HCPCS: 99213; C1751

== ENCOUNTER 2020-07-07 09:29 | Day surgery (SDC) | payer MEDICARE ==
--- NOTE | 2020-07-07 11:58 | NUR ---
ATTEMPTED IV TRIES FOR OVER AN HOUR. WITH 7 ATTEMPTS. CALLED AT 1058 AND TALKED WITH GLORY BONILLA MA AT [facility] ABOUT UNABLE TO START IV. DAUGHTER TO WAIT IN TOWN AND [facility] WILL CALL THEM BACK.
== END 2020-07-07 11:03 | disposition home or self-care (01) ==
LOC: ATC 09:29
DX: C34.31 Malignant neoplasm of lower lobe, right bronchus or lung (principal); C79.51 Secondary malignant neoplasm of bone; C77.1 Secondary and unspecified malignant neoplasm of intrathoracic lymph nodes; C78.7 Secondary malignant neoplasm of liver and intrahepatic bile duct; Z88.5 Allergy status to narcotic agent; Z88.1 Allergy status to other antibiotic agents; Z88.0 Allergy status to penicillin; Z88.8 Allergy status to other drugs, medicaments and biological substances; I10 Essential (primary) hypertension; Z91.018 Allergy to other foods; E11.9 Type 2 diabetes mellitus without complications; Z87.891 Personal history of nicotine dependence; Z79.899 Other long term (current) drug therapy; J44.9 Chronic obstructive pulmonary disease, unspecified; Z79.82 Long term (current) use of aspirin
CPT/HCPCS: 99213

== ENCOUNTER 2020-07-15 08:52 | Day surgery (SDC) | payer MEDICARE ==
[~2020-07-15] VITALS: Ht 152.4 cm; Wt 54.2 kg
--- NOTE | 2020-07-15 12:28 | NUR ---
DRESSING GAUZE AND TEGADERM WITH SCANT AMOUNT OF SANG DRAINAGE.
--- NOTE | 2020-07-15 12:42 | NUR ---
NO CHANGE IN DRAINAGE TO INCISION AT MEDIPORT SITE. PT UP AND NEEDED MINIMAL ASSIST GETTING DRESSED. NO SIGN OR SYMPTOM OF DISTRESS. Patient States Post-Procedure ride home has been arranged. Discharged via wheelchair to private car for ride home. ALL BELONINGS RETURNED TO PATIENT.
== END 2020-07-15 12:00 | disposition home or self-care (01) ==
LOC: ORSCMMR 08:52 → ORD 10:00 → ORSCMMR 10:00
PROVIDERS: Surgery
PROC: B5161ZA Fluoroscopy of Right Subclavian Vein using Low Osmolar Contrast, Guidance (ICD-10-PCS; principal; 2020-07-15 10:00)
PROC: 05H533Z Insertion of Infusion Device into Right Subclavian Vein, Percutaneous Approach (ICD-10-PCS; principal; 2020-07-15 10:00)
DX: C34.81 Malignant neoplasm of overlapping sites of right bronchus and lung (principal); I10 Essential (primary) hypertension; I48.91 Unspecified atrial fibrillation; E11.9 Type 2 diabetes mellitus without complications; G30.9 Alzheimer's disease, unspecified; J44.9 Chronic obstructive pulmonary disease, unspecified; Z87.891 Personal history of nicotine dependence; Z86.73 Personal history of transient ischemic attack (TIA), and cerebral infarction without residual deficits; Z79.899 Other long term (current) drug therapy
CPT/HCPCS: 77001; 82947; C1788; J1100; J1642; J2370; J2405; J2704; J3010; J7120

== ENCOUNTER 2020-07-25 10:47 | Observation (INO) | payer MEDICARE ==
[~2020-07-25] VITALS: Ht 157.5 cm; Wt 55.3 kg
[~2020-07-25 10:47] MED LIST changes: +ALBU2.5V5 NEB; -AMLO10 PO
[2020-07-25 11:34] LABS: Alanine Aminotransfer (ALT/SGP 18 U/L (12-78); Albumin, Blood 2.7 g/dL (3.4-5.0); Albumin/Globulin Ratio 0.9 (0.8-1.8); Alk Phos 273 U/L (50-136); Anion Gap 5 mmol/L (6-16); Aspartate Aminotrans (AST/SGOT 19 U/L (12-37); Bilirubin, Total 0.5 mg/dL (0.1-1.0); Blood Urea Nitrogen 39 mg/dL (8-24); Bun/Creatinine Ratio 37.9 (12.0-20.0); CO2, Blood 25 mmol/L (21-32); Calcium, Blood 7.6 mg/dL (8.5-10.1); Chloride, Blood 112 mmol/L (98-108); Creatinine, Blood 1.03 mg/dL (0.40-1.00); Glomerular Filtration Rate 55 (60-); Glucose, Blood 106 mg/dL (70-99); Potassium, Blood 4.4 mmol/L (3.5-5.5); Sodium, Blood 142 mmol/L (136-145); Total Protein, Blood 5.7 g/dL (6.4-8.2); Troponin I <0.015 ng/mL (0.000-0.040)
[2020-07-25 12:07] LABS: Hematocrit 31.9 % (33.0-51.0); Hemoglobin 9.8 g/dL (11.5-16.0); Mean Corpuscular HGB 31.2 pg (26.0-34.0); Mean Corpuscular HGB Conc 30.7 g/dL (31.5-36.5); Mean Corpuscular Volume 102 fL (80-100); Mean Platelet Volume 8.8 fL (9.1-12.4); Platelet Count 388 K/mm3 (150-400); RDW Coefficient Variation 20.1 % (11.7-14.2); RDW Standard Deviation 75.1 fL (35.1-46.3); Red Blood Cell Count 3.14 M/mm3 (3.80-5.20)
[2020-07-25 12:24] LABS: White Blood Cell Count 51.17 K/mm3 (4.00-11.30)
[2020-07-25 12:41] LABS: Source, Urine Clean Catch
[2020-07-25 12:53] LABS: Bilirubin, Urine Neg (Neg); Blood, Urine 1+ (Neg); Glucose Qualitative, Urine Neg (Neg); Ketones, Urine Neg (Neg); Leukocyte Esterase, Urine Neg (Neg); Nitrite, Urine Neg (Neg); Protein, Urine Neg (Neg); Urobilinogen, Urine NORM (Normal); pH, Urine 6.5 (5.0-8.0)
[2020-07-25 13:04] LABS: BAND PERCENT MAN 6 % (0-8); BASOPHILS PERCENT MAN 0 % (0-2); EOSINOPHILS ABSOLUTE MAN 1.02 K/mm3 (0.00-0.68); EOSINOPHILS PERCENT MAN 2 % (0-6); LYMPHOCYTES ABSOLUTE MAN 1.02 K/mm3 (0.84-5.20); LYMPHOCYTES PERCENT MAN 2 % (21-46); MONOCYTES PERCENT MAN 0 % (4-13); NEUTROPHILS ABSOLUTE MAN 49.12 K/mm3 (1.96-9.15); SEG NEUTROPHILS PERCENT MAN 90 % (41-73); TOTAL CELLS COUNTED 100
[2020-07-25 13:26] LABS: Appearance, Urine Clear (Clear); Color, Urine Yellow (P-Yellow)
[2020-07-25 13:27] LABS: Red Blood Cells, Urine 0-2 /hpf (0-2); White Blood Cells, Urine 0-2 /hpf (0-5)
[2020-07-25 13:28] LABS: Bacteria Rare /hpf; Squamous Epithelial Cells Rare /hpf (Few)
--- NOTE | 2020-07-25 16:00 | NUR ---
PT ARRIVED TO ROOM 359 FROM ED AT 1530. 1 PERSON ASSIST TO BATHROOM TO VOID AND THEN TO BED. DAUGHTER AT BEDSIDE AND ASSISTED WITH ANSWERING QUESTIONS FOR ADMIT PAPERWORK. PT PLEASANT AND APPROPRIATE BUT DAUGHTER REPORTS PT BEING FORGETFUL AT BASELINE. BED ALARM INITIATED. DAUGHTER REPORTS PT LAST HAD CHEMO ON MONDAY.
--- NOTE | 2020-07-25 18:39 | NUR ---
SHIFT SUMMARY PT HAS BEEN COOPERATIVE AND CALLING FOR ASSISTANCE SO FAR SINCE ADMIT. HAS DENIED PAIN OR NAUSEA SINCE ARRIVAL. FLUIDS INFUSING WITH NO PROBLEM. HAS DENIED FEELING DIZZY OR LIGHTHEADED WHEN UP WELL. DAUGHTER EXPRESSED CONCERN THAT PTS SYMPTOMS COULD POSSIBLY HAVE BEEN RELATED TO A TIA. NO CHANGE SINCE ARRIVAL TO FLOOR.
[2020-07-26 04:50] LABS: Hematocrit 24.7 % (33.0-51.0); Hemoglobin 7.7 g/dL (11.5-16.0); Mean Corpuscular HGB 31.4 pg (26.0-34.0); Mean Corpuscular HGB Conc 31.2 g/dL (31.5-36.5); Mean Corpuscular Volume 101 fL (80-100); Mean Platelet Volume 8.7 fL (9.1-12.4); Platelet Count 289 K/mm3 (150-400); RDW Coefficient Variation 20.1 % (11.7-14.2); RDW Standard Deviation 74.4 fL (35.1-46.3); Red Blood Cell Count 2.45 M/mm3 (3.80-5.20); White Blood Cell Count 40.73 K/mm3 (4.00-11.30)
[2020-07-26 05:36] LABS: Bun/Creatinine Ratio 35.5 (12.0-20.0); Calcium, Blood 7.4 mg/dL (8.5-10.1); Creatinine, Blood 1.21 mg/dL (0.40-1.00); Potassium, Blood 4.4 mmol/L (3.5-5.5)
--- NOTE | 2020-07-26 05:48 | NUR ---
SHIFT SUMMARY: AAOX3. FORGETFUL AND REPEATS SELF. PLEASANT AND COOPERATIVE. BP LOWER TONIGHT, STABLE. IV FLUIDS PER ORDER. 02 2L VIA NC PLACED AT HS PER HOME 02 USE. T/F W/ 1 ASSIST. DENIES DIZZINESS/LIGHTHEADEDNESS. DENIES PAIN. BED ALARM ON DUE TO FORGETFULLNESS, BUT PT IS CALLING APPROPRIATELY FOR ASSISTANCE. NSR 78 PER TELE CIVIL TECHNICIAN. WILL CONT TO MONITOR.
[2020-07-26 05:53] LABS: BASOPHILS PERCENT MAN 0 % (0-2); EOSINOPHILS ABSOLUTE MAN 1.62 K/mm3 (0.00-0.68); EOSINOPHILS PERCENT MAN 4 % (0-6); LYMPHOCYTES ABSOLUTE MAN 1.62 K/mm3 (0.84-5.20); LYMPHOCYTES PERCENT MAN 4 % (21-46); MONOCYTES PERCENT MAN 0 % (4-13); NEUTROPHILS ABSOLUTE MAN 37.47 K/mm3 (1.96-9.15); SEG NEUTROPHILS PERCENT MAN 92 % (41-73); TOTAL CELLS COUNTED 100
[2020-07-26] MEDS ORDERED: ASPI81CH PO (11:51)
--- NOTE | 2020-07-26 16:29 | NUR ---
DISCHARGE INSTRUCTIONS COMPLETED AND DISCUSSED WITH PTS DAUGHTER EXPRESSING UNDERSTANDING. HAS HAD NO FURTHER NEAR SYNCOPAL EPISODES. WALKED IN HALLWAY USING A FWW THIS MORNING AND TOLERATED WALKING APPROX 100 FT. SOB WITH ACTIVITY BUT RECOVERED AFTER REST. AMBULATED TO ELEVATOR USING FWW ON DISCHARGE AND TOOK W/C THE REMAINDER OF THE WAY TO EXIT WITH DAUGHTER TAKING HER HOME.
== END 2020-07-26 16:26 | disposition home or self-care (01) ==
LOC: ER 10:47 → MEDS 10:48 → ER 15:20 → MEDS 15:32
PROVIDERS: Emergency Medicine; ADMIT Internal Medicine
DX: R42 Dizziness and giddiness (principal); G30.9 Alzheimer's disease, unspecified; F02.80 Dementia in other diseases classified elsewhere, unspecified severity, without behavioral disturbance, psychotic disturbance, mood disturbance, and anxiety; R47.81 Slurred speech; C34.90 Malignant neoplasm of unspecified part of unspecified bronchus or lung; I12.9 Hypertensive chronic kidney disease with stage 1 through stage 4 chronic kidney disease, or unspecified chronic kidney disease; E11.22 Type 2 diabetes mellitus with diabetic chronic kidney disease; N18.31 Chronic kidney disease, stage 3a; D63.1 Anemia in chronic kidney disease; J44.9 Chronic obstructive pulmonary disease, unspecified; I48.91 Unspecified atrial fibrillation; K21.9 Gastro-esophageal reflux disease without esophagitis; I25.10 Atherosclerotic heart disease of native coronary artery without angina pectoris; D72.829 Elevated white blood cell count, unspecified; R79.1 Abnormal coagulation profile; Z23 Encounter for immunization; Z66 Do not resuscitate; Z51.5 Encounter for palliative care; Z85.3 Personal history of malignant neoplasm of breast; Z86.73 Personal history of transient ischemic attack (TIA), and cerebral infarction without residual deficits; Z90.49 Acquired absence of other specified parts of digestive tract; Z90.710 Acquired absence of both cervix and uterus; Z90.10 Acquired absence of unspecified breast and nipple; Z87.891 Personal history of nicotine dependence; Z88.1 Allergy status to other antibiotic agents; Z88.5 Allergy status to narcotic agent; Z88.2 Allergy status to sulfonamides; Z88.6 Allergy status to analgesic agent; Z88.8 Allergy status to other drugs, medicaments and biological substances; Z79.82 Long term (current) use of aspirin; Z79.51 Long term (current) use of inhaled steroids; Z79.899 Other long term (current) drug therapy
CPT/HCPCS: 36415; 71045; 71260; 80048; 80053; 81001; 84484; 85025; 85379; 93005; 93010; 99285-25; A9270-GY; G0378; J1642; J7120; Q9967

== ENCOUNTER 2020-08-10 17:38 | Emergency (ER) | payer MEDICARE ==
[~2020-08-10] VITALS: Ht 162.6 cm; Wt 56.7 kg
[2020-08-10 18:32] LABS: BASOPHILS ABSOLUTE AUTO 0.11 K/mm3 (0.00-0.23); BASOPHILS PERCENT AUTO 0 % (0-2); EOSINOPHILS ABSOLUTE AUTO 0.02 K/mm3 (0.00-0.68); EOSINOPHILS PERCENT AUTO 0 % (0-6); Hematocrit 32.7 % (33.0-51.0); Hemoglobin 9.9 g/dL (11.5-16.0); IMMATURE GRAN ABSOLUTE AUTO 0.32 K/mm3 (0.00-0.10); IMMATURE GRAN PERCENT AUTO 1 % (0-1); LYMPHOCYTES ABSOLUTE AUTO 1.67 K/mm3 (0.84-5.20); LYMPHOCYTES PERCENT AUTO 6 % (21-46); MONOCYTES ABSOLUTE AUTO 2.68 K/mm3 (0.16-1.47); MONOCYTES PERCENT AUTO 10 % (4-13); Mean Corpuscular HGB Conc 30.3 g/dL (31.5-36.5); Mean Corpuscular Volume 106 fL (80-100); NEUTROPHILS ABSOLUTE AUTO 21.54 K/mm3 (1.96-9.15); NEUTROPHILS PERCENT AUTO 82 % (41-73); NRBC ABSOLUTE 0.11 K/mm3 (0.00-0.02); NRBC Auto 0.4 /100 WBC (0.0-0.2); Platelet Count 622 K/mm3 (150-400); RDW Coefficient Variation 21.9 % (11.7-14.2); RDW Standard Deviation 83.9 fL (35.1-46.3); Red Blood Cell Count 3.09 M/mm3 (3.80-5.20); White Blood Cell Count 26.34 K/mm3 (4.00-11.30)
[2020-08-10 18:52] LABS: Troponin I <0.015 ng/mL (0.000-0.040)
[2020-08-10 19:07] LABS: Alanine Aminotransfer (ALT/SGP 14 U/L (12-78); Albumin, Blood 3.4 g/dL (3.4-5.0); Albumin/Globulin Ratio 0.9 (0.8-1.8); Alk Phos 290 U/L (50-136); Anion Gap 8 mmol/L (6-16); Aspartate Aminotrans (AST/SGOT 26 U/L (12-37); Bilirubin, Total 0.4 mg/dL (0.1-1.0); Blood Urea Nitrogen 28 mg/dL (8-24); Bun/Creatinine Ratio 21.7 (12.0-20.0); CO2, Blood 26 mmol/L (21-32); Calcium, Blood 8.7 mg/dL (8.5-10.1); Chloride, Blood 104 mmol/L (98-108); Creatinine, Blood 1.29 mg/dL (0.40-1.00); Globulin, Blood 3.7 g/dL (2.2-4.0); Glomerular Filtration Rate 42 (60-); Glucose, Blood 110 mg/dL (70-99); Potassium, Blood 4.4 mmol/L (3.5-5.5); Sodium, Blood 138 mmol/L (136-145); Total Protein, Blood 7.1 g/dL (6.4-8.2)
[2020-08-10 21:05] LABS: Source, Urine Clean Catch
[2020-08-10 21:37] LABS: Appearance, Urine Clear (Clear); Bilirubin, Urine Neg (Neg); Blood, Urine Neg (Neg); Color, Urine Yellow (P-Yellow); Glucose Qualitative, Urine Neg (Neg); Ketones, Urine Neg (Neg); Leukocyte Esterase, Urine Neg (Neg); Nitrite, Urine Neg (Neg); Protein, Urine 2+ (Neg); Urobilinogen, Urine NORM (Normal)
[2020-08-10 21:57] LABS: Bacteria Rare /hpf; Red Blood Cells, Urine Rare /hpf (0-2); Squamous Epithelial Cells Not Seen /hpf (Few); White Blood Cells, Urine 0-2 /hpf (0-5)
[2020-08-10] MEDS ORDERED: Zithromax250 MG PO (22:21)
== END 2020-08-10 22:36 | disposition home or self-care (01) ==
LOC: ER 17:38
PROVIDERS: Emergency Medicine
DX: C34.90 Malignant neoplasm of unspecified part of unspecified bronchus or lung (principal); D72.829 Elevated white blood cell count, unspecified; R50.9 Fever, unspecified; Z51.12 Encounter for antineoplastic immunotherapy; Z20.828 Contact with and (suspected) exposure to other viral communicable diseases
CPT/HCPCS: 36415; 71045; 80053; 81001; 83880; 84484; 85025; 87086; 93005; 93010; 99285-25; U0004

== ENCOUNTER 2020-08-11 23:00 | Emergency (ER) | payer MEDICARE ==
[~2020-08-11] VITALS: Ht 154.9 cm; Wt 54.9 kg
[2020-08-12 00:48] LABS: Hematocrit 31.5 % (33.0-51.0); Hemoglobin 9.7 g/dL (11.5-16.0); Mean Corpuscular HGB 32.4 pg (26.0-34.0); Mean Corpuscular HGB Conc 30.8 g/dL (31.5-36.5); Mean Corpuscular Volume 105 fL (80-100); NRBC ABSOLUTE 0.03 K/mm3 (0.00-0.02); NRBC Auto 0.1 /100 WBC (0.0-0.2); Platelet Count 565 K/mm3 (150-400); RDW Coefficient Variation 21.4 % (11.7-14.2); RDW Standard Deviation 82.8 fL (35.1-46.3); Red Blood Cell Count 2.99 M/mm3 (3.80-5.20); White Blood Cell Count 33.05 K/mm3 (4.00-11.30)
[2020-08-12 01:09] LABS: Albumin/Globulin Ratio 0.7 (0.8-1.8); Bilirubin, Total 0.8 mg/dL (0.1-1.0); Bun/Creatinine Ratio 19.8 (12.0-20.0); Calcium, Blood 8.2 mg/dL (8.5-10.1); Creatinine, Blood 1.72 mg/dL (0.40-1.00); Globulin, Blood 4.1 g/dL (2.2-4.0); Potassium, Blood 5.5 mmol/L (3.5-5.5); Total Protein, Blood 7.1 g/dL (6.4-8.2)
[2020-08-12 01:22] LABS: BAND PERCENT MAN 1 % (0-8); BASOPHILS PERCENT MAN 0 % (0-2); EOSINOPHILS PERCENT MAN 0 % (0-6); LYMPHOCYTES ABSOLUTE MAN 1.98 K/mm3 (0.84-5.20); LYMPHOCYTES PERCENT MAN 6 % (21-46); MONOCYTES ABSOLUTE MAN 2.97 K/mm3 (0.16-1.47); MONOCYTES PERCENT MAN 9 % (4-13); NEUTROPHILS ABSOLUTE MAN 28.09 K/mm3 (1.96-9.15); SEG NEUTROPHILS PERCENT MAN 84 % (41-73); TOTAL CELLS COUNTED 100
[2020-08-12 01:23] LABS: Source, Urine Clean Catch
[2020-08-12 01:31] LABS: Bilirubin, Urine Neg (Neg); Blood, Urine Neg (Neg); Glucose Qualitative, Urine Neg (Neg); Ketones, Urine Neg (Neg); Leukocyte Esterase, Urine 2+ (Neg); Nitrite, Urine Neg (Neg); Protein, Urine 2+ (Neg); Urobilinogen, Urine NORM (Normal)
[2020-08-12 01:41] LABS: Color, Urine Yellow (P-Yellow)
[2020-08-12 01:42] LABS: Appearance, Urine Clear (Clear)
[2020-08-12 01:44] LABS: Red Blood Cells, Urine Not Seen /hpf (0-2); Squamous Epithelial Cells Few /hpf (Few)
[2020-08-12 01:45] LABS: Bacteria Few /hpf; Mucus Light (0-Heavy)
[2020-08-13] MEDS ORDERED: Dilaudid 2 mg Ta2 MG PO (20:11)
== END 2020-08-12 02:56 | disposition home or self-care (01) ==
LOC: ER 23:00
PROVIDERS: Emergency Medicine
DX: G89.3 Neoplasm related pain (acute) (chronic) (principal); M54.5 Low back pain; C78.7 Secondary malignant neoplasm of liver and intrahepatic bile duct; C78.00 Secondary malignant neoplasm of unspecified lung; C79.82 Secondary malignant neoplasm of genital organs; I11.0 Hypertensive heart disease with heart failure; J44.9 Chronic obstructive pulmonary disease, unspecified; E11.9 Type 2 diabetes mellitus without complications; K21.9 Gastro-esophageal reflux disease without esophagitis; I50.9 Heart failure, unspecified; I48.91 Unspecified atrial fibrillation; Z88.6 Allergy status to analgesic agent; Z88.2 Allergy status to sulfonamides; Z88.5 Allergy status to narcotic agent; Z88.8 Allergy status to other drugs, medicaments and biological substances; Z87.891 Personal history of nicotine dependence; Z79.899 Other long term (current) drug therapy
CPT/HCPCS: 36415; 74176; 80053; 81001; 83690; 85025; 87086; 96374; 96375; 99284-25; A9270; A9270-GY; J1170; J2405; J3010

== ENCOUNTER 2020-08-13 18:51 | Emergency (ER) | payer MEDICARE ==
[~2020-08-13] VITALS: Ht 157.5 cm; Wt 54.4 kg
[2020-08-13 19:29] LABS: Hematocrit 31.6 % (33.0-51.0); Hemoglobin 9.3 g/dL (11.5-16.0); Mean Corpuscular HGB 32.4 pg (26.0-34.0); Mean Corpuscular HGB Conc 29.4 g/dL (31.5-36.5); NRBC ABSOLUTE 0.36 K/mm3 (0.00-0.02); NRBC Auto 1.2 /100 WBC (0.0-0.2); Platelet Count 281 K/mm3 (150-400); RDW Coefficient Variation 21.5 % (11.7-14.2); RDW Standard Deviation 87.7 fL (35.1-46.3); Red Blood Cell Count 2.87 M/mm3 (3.80-5.20); White Blood Cell Count 29.72 K/mm3 (4.00-11.30)
[2020-08-13 19:31] LABS: Mean Corpuscular Volume 110 fL (80-100)
[2020-08-13 19:50] LABS: Troponin I <0.015 ng/mL (0.000-0.040)
[2020-08-13 19:51] LABS: Alanine Aminotransfer (ALT/SGP 173 U/L (12-78); Albumin, Blood 2.7 g/dL (3.4-5.0); Albumin/Globulin Ratio 0.7 (0.8-1.8); Alk Phos 433 U/L (50-136); Anion Gap 19 mmol/L (6-16); Aspartate Aminotrans (AST/SGOT 333 U/L (12-37); Bilirubin, Total 0.9 mg/dL (0.1-1.0); Blood Urea Nitrogen 58 mg/dL (8-24); Bun/Creatinine Ratio 20.1 (12.0-20.0); CO2, Blood 15 mmol/L (21-32); Calcium, Blood 7.4 mg/dL (8.5-10.1); Chloride, Blood 100 mmol/L (98-108); Creatinine, Blood 2.88 mg/dL (0.40-1.00); Globulin, Blood 3.8 g/dL (2.2-4.0); Glomerular Filtration Rate 17 (60-); Glucose, Blood 43 mg/dL (70-99); Potassium, Blood 5.1 mmol/L (3.5-5.5); Sodium, Blood 134 mmol/L (136-145); Total Protein, Blood 6.5 g/dL (6.4-8.2)
[2020-08-13 20:09] LABS: BAND PERCENT MAN 22 % (0-8); BASOPHILS PERCENT MAN 0 % (0-2); EOSINOPHILS PERCENT MAN 0 % (0-6); LYMPHOCYTES ABSOLUTE MAN 0.29 K/mm3 (0.84-5.20); LYMPHOCYTES PERCENT MAN 1 % (21-46); METAMYELOCYTE ABSOLUTE MAN 1.18 K/mm3 (0.00-0.00); METAMYELOCYTE PERCENT MAN 4 % (0-0); MONOCYTES ABSOLUTE MAN 0.29 K/mm3 (0.16-1.47); MONOCYTES PERCENT MAN 1 % (4-13); MYELOCYTE ABSOLUTE MAN 0.29 K/mm3 (0.00-0.00); MYELOCYTE PERCENT MAN 1 % (0-0); NEUTROPHILS ABSOLUTE MAN 27.63 K/mm3 (1.96-9.15); SEG NEUTROPHILS PERCENT MAN 71 % (41-73); TOTAL CELLS COUNTED 100
[2020-08-13] MEDS ORDERED: Dilaudid 2 mg Ta2 MG PO (20:11)
== END 2020-08-14 01:49 ==
LOC: ER 18:51
PROVIDERS: Emergency Medicine
DX: A41.9 Sepsis, unspecified organism (principal); J18.9 Pneumonia, unspecified organism; J44.9 Chronic obstructive pulmonary disease, unspecified; E11.9 Type 2 diabetes mellitus without complications; K21.9 Gastro-esophageal reflux disease without esophagitis; I11.0 Hypertensive heart disease with heart failure; I50.9 Heart failure, unspecified; I48.91 Unspecified atrial fibrillation; Z88.6 Allergy status to analgesic agent; Z88.8 Allergy status to other drugs, medicaments and biological substances; Z88.2 Allergy status to sulfonamides; Z88.5 Allergy status to narcotic agent; Z79.899 Other long term (current) drug therapy; Z91.018 Allergy to other foods; Z85.118 Personal history of other malignant neoplasm of bronchus and lung; Z88.1 Allergy status to other antibiotic agents; Z87.891 Personal history of nicotine dependence
CPT/HCPCS: 36415; 71045; 80053; 83605; 83880; 84484; 85025; 87040; 87186; 93005; 93010; 94640; 96374; 96375; 99285-25; J1170; J2405; J2543